=== PATIENT | female | born 1995 | race Caucasian/White ===

== ENCOUNTER → 2018-04-27 12:08 | Outpatient (CLI) | payer BC, SELFPAY ==
[2018-04-27 14:58] LABS: Absolute Lymphocyte Count 1.03 X10^3/ul (0.83-4.51); Absolute Neutrophil Count 4.9 X10^3/uL (2.0-7.7); Basophil# 0.01 X10^3/uL; Basophil% 0.2 % (0-1); Eosinophil# 0.02 X10^3/uL; Eosinophils% 0.3 % (0-5); Erythrocyte Sedimentation Rate 5 mm/hr (0-20); Hematocrit 41.9 % (37-47); Hemoglobin 13.8 g/dl (12.0-15.0); Lymphocyte # 1.03 X10^3/ul (4.0); Lymphocyte % 15.8 % (19-41); Mean Corp Hgb Conc 32.9 g/gl (32-36); Mean Corpuscular Hgb 29.6 pg (27.0-32.0); Mean Corpuscular Volume 89.9 fL (81-99); Mean Platelet Vol. 10.5 fl (6.2-12.0); Monocyte# 0.57 X10^3/uL; Monocyte% 8.8 % (0-10); Neutrophil # 4.87 X10^3/uL (2.7-7.7); Neutrophil % 74.7 % (47-70); Platelet Count 271 K/mm3 (150-450); RBC Distribution Width CV 12.5 % (11.6-14.6); RBC Distribution Width SD 40.8 fl (35.1-43.9); Red Blood Count 4.66 M/mm3 (4.2-5.4); White Blood Count 6.5 K/mm3 (4.4-11.0)
[2018-04-27 14:59] LABS: POSITIVE COUNT NO; POSITIVE DIFFERENTIAL NO; POSITIVE MORPHOLOGY NO
[2018-04-27 15:07] LABS: Vitamin B12 238 pg/mL (211-911); Vitamin D,25 Hydroxy 34.9 ng/mL (29.95-100.01)
[2018-04-27 15:08] LABS: ALB/GLOB Ratio 0.8 RATIO (0.9-2.4); AST(SGOT) 40 U/L (15-37); Alanine Aminotransfer ALT/SGPT 59 U/L (13-56); Albumin, Serum 3.4 g/dL (3.2-5.0); Alkaline Phosphatase 68 U/L (45-117); Anion Gap 7 (5-15); BUN 11 mg/dL (7-18); BUN/Creat Ratio 14.2 RATIO (10-20); Calcium,Total 8.1 mg/dL (8.5-10.1); Chloride 104 mmol/L (98-107); Creatinine, Serum 0.77 mg/dL (0.55-1.02); EST Glomerular Filtration Rate 98 mL/min (>60); Est Glom Filt Rate - Afr Amer 119 mL/min (>60); Glucose 88 mg/dL (74-106); Iron 27 ug/dL (50-170); Potassium 3.5 mmol/L (3.5-5.1); Protein, Total 7.4 g/dL (6.4-8.2); Sodium Level 136 mmol/L (136-145); Thyroid Stim Hormone (TSH) 1.71 uIU/mL (0.358-3.74)
[2018-04-28 20:07] LABS: Endomysial Antibody IgA Negative (Negative)
[2018-04-29 12:35] LABS: Immunoglobulin A 122 mg/dL (87-352); t-Transglutaminase IgA <2 U/mL (0-3)
== END ==
PROVIDERS: Referring Provider Family Medicine; Visit Provider Family Medicine
DX: K58.0 Irritable bowel syndrome with diarrhea (principal); R53.83 Other fatigue
CPT/HCPCS: 36415; 80053; 82306; 82607; 82784; 83516; 83540; 84443; 85025; 85652; 86255

== ENCOUNTER → 2018-07-19 17:34 | Outpatient (CLI) | payer BC, SELFPAY ==
[2018-07-19 08:43] VITALS: BMI 26.0
[2018-07-19 20:14] LABS: Chlamydia Trachomatis by PCR Negative (Negative); Neisserai gonorrhoeae by PCR Negative (Negative); Probe Check PASS; Sample Adequacy Control PASS; Specimen Processing Control PASS
== END ==
PROVIDERS: Visit Provider Nurse Practitioner Women's Health
DX: Z11.3 Encounter for screening for infections with a predominantly sexual mode of transmission (principal)
CPT/HCPCS: 87491; 87591

== ENCOUNTER → 2019-04-05 15:25 | Outpatient (CLI) | payer BC, SELFPAY ==
[2019-04-05 11:34] VITALS: BMI 26.0
== END ==
PROVIDERS: Visit Provider Nurse Practitioner Women's Health
DX: N89.8 Other specified noninflammatory disorders of vagina (principal)
CPT/HCPCS: 87070; 87205

== ENCOUNTER → 2019-06-01 | Outpatient (CLI) | payer BC, SELFPAY ==
[2019-04-05 11:34] VITALS: BMI 26.0
[2019-06-01 15:38] LABS: Absolute Lymphocyte Count 2.08 X10^3/uL (0.83-4.51); Absolute Neutrophil Count 5.7 X10^3/uL (2.0-7.7); Basophil# 0.02 X10^3/uL; Basophil% 0.2 % (0-1); Eosinophil# 0.08 X10^3/uL; Hematocrit 40.9 % (37-47); Hemoglobin 13.5 g/dL (12.0-15.0); Lymphocyte # 2.08 X10^3/ul (4.0); Lymphocyte % 24.7 % (19-41); Mean Corpuscular Hgb 29.5 pg (27.0-32.0); Mean Corpuscular Volume 89.5 fL (81-99); Mean Platelet Vol. 10.7 fl (6.2-12.0); Monocyte# 0.56 X10^3/uL; Monocyte% 6.7 % (0-10); NRBC Flagged by Analyzer 0 % (0-5); Neutrophil # 5.66 X10^3/uL (2.7-7.7); Neutrophil % 67.2 % (47-70); Platelet Count 277 K/mm3 (150-450); RBC Distribution Width CV 11.6 % (11.6-14.6); RBC Distribution Width SD 37.8 fl (35.1-43.9); Red Blood Count 4.57 M/mm3 (4.2-5.4); White Blood Count 8.4 K/mm3 (4.4-11.0)
[2019-06-01 16:20] LABS: Internal QC Validated? YES +Cl - CLEAR BKGD; Monotest Negative (Negative)
[2019-06-01 16:22] LABS: AST(SGOT) 14 U/L (15-37); Alanine Aminotransfer ALT/SGPT 34 U/L (13-56); Alkaline Phosphatase 70 U/L (45-117); Anion Gap 5 (5-15); BUN 13 mg/dL (7-18); BUN/Creat Ratio 14.8 RATIO (10-20); Calcium,Total 9.1 mg/dL (8.5-10.1); Chloride 104 mmol/L (98-107); Creatinine, Serum 0.88 mg/dL (0.55-1.02); EST Glomerular Filtration Rate 84 mL/min (>60); Est Glom Filt Rate - Afr Amer 102 mL/min (>60); Globulin 3.9 g/dL (2.2-4.2); Glucose 90 mg/dL (74-106); Potassium 3.5 mmol/L (3.5-5.1); Protein, Total 7.9 g/dL (6.4-8.2); Sodium Level 137 mmol/L (136-145)
[2019-06-05 12:18] LABS: EBV Acute VCA IgM < 36.0 U/mL (0.0-35.9)
== END | disposition home or self-care (01) ==
LOC: MTLAB 14:39
PROVIDERS: Referring Provider Family Medicine; Visit Provider Family Medicine
DX: R53.83 Other fatigue (principal)
CPT/HCPCS: 36415; 80053; 85025; 86308; 86664; 86665

== ENCOUNTER → 2019-09-26 | Outpatient (CLI) | payer BC, SELFPAY ==
[2019-09-26 09:44] VITALS: BMI 26.0
[2019-09-30 11:37] LABS: HPV Reflexed? NOT INDICATED
== END | disposition home or self-care (01) ==
LOC: LABSPEC 14:22
PROVIDERS: PCP Family Medicine; Referring Provider Nurse Practitioner Women's Health; Visit Provider Nurse Practitioner Women's Health
DX: Z12.4 Encounter for screening for malignant neoplasm of cervix (principal)
CPT/HCPCS: 88175; G0145

== ENCOUNTER → 2020-03-15 | Outpatient (CLI) | payer BC, SELFPAY ==
[2019-09-26 09:44] VITALS: BMI 26.0
== END | disposition home or self-care (01) ==
LOC: LABSPEC 17:13
PROVIDERS: PCP Family Medicine; Referring Provider Family Medicine; Visit Provider Family Medicine
DX: Z03.818 Encounter for observation for suspected exposure to other biological agents ruled out (principal)
CPT/HCPCS: 87635; C9803; U0003

== ENCOUNTER → 2020-04-01 12:57 | Outpatient (CLI) | payer BC, SELFPAY ==
[2019-09-26 09:44] VITALS: BMI 26.0
--- NOTE | 2020-04-01 13:01 | RAD_ITS ---
STUDY: X-RAY - PARANASAL SINUSES REASON FOR EXAM: Female, 25 years old. acute sinusitis TECHNIQUE: 3 view(s) of the paranasal sinuses were obtained. COMPARISON: None. FINDINGS: Normal visualized frontal, maxillary, ethmoidal and sphenoid sinuses. Normal visualized facial bones. The soft tissue structures are unremarkable. RAD/Sinuses min 3 Views IMPRESSION: Normal x-rays of the paranasal sinuses. Electronically Signed: Michael Ramirez MD at 22:58 EST , Service support ,
== END ==
PROVIDERS: PCP Family Medicine; Referring Provider Family Medicine; Visit Provider Family Medicine
DX: J01.90 Acute sinusitis, unspecified (principal)
CPT/HCPCS: 70220

== ENCOUNTER → 2021-01-13 | Outpatient (CLI) | payer OTHER, BC, SELFPAY | END | disposition home or self-care (01) | PROVIDERS: PCP Family Medicine; Referring Provider Family Medicine; Visit Provider Family Medicine | DX: Z20.822 Contact with and (suspected) exposure to COVID-19 (principal) | CPT/HCPCS: 87635; U0005; U0003 ==

== ENCOUNTER → 2021-01-29 14:24 | Outpatient (CLI) | payer OTHER, SELFPAY ==
[2021-01-29 17:55] LABS: Absolute Lymphocyte Count 2.03 X10^3/uL (0.83-4.51); Absolute Neutrophil Count 3.4 X10^3/uL (2.0-7.7); Basophil# 0.01 X10^3/uL; Basophil% 0.2 % (0-1); Eosinophil# 0.03 X10^3/uL; Eosinophils% 0.5 % (0-5); Hematocrit 37.5 % (37-47); Hemoglobin 12.5 g/dL (12.0-15.0); Lymphocyte # 2.03 X10^3/ul (0.83-4.51); Lymphocyte % 34.3 % (19-41); Mean Corp Hgb Conc 33.3 g/dL (32-36); Mean Corpuscular Volume 89.9 fL (81-99); Mean Platelet Vol. 10.5 fl (6.2-12.0); Monocyte# 0.41 X10^3/uL; Monocyte% 6.9 % (0-10); NRBC Flagged by Analyzer 0 % (0-5); Neutrophil # 3.42 X10^3/uL (2.7-7.7); Neutrophil % 57.8 % (47-70); Platelet Count 292 K/mm3 (150-450); RBC Distribution Width CV 11.7 % (11.6-14.6); RBC Distribution Width SD 38.4 fl (35.1-43.9); Red Blood Count 4.17 M/mm3 (4.2-5.4); White Blood Count 5.9 K/mm3 (4.4-11.0)
[2021-01-29 18:08] LABS: Erythrocyte Sedimentation Rate 9 mm/hr (0-30)
[2021-01-29 18:27] LABS: Anion Gap 6 (5-15); BUN 13 mg/dL (7-18); BUN/Creat Ratio 16.7 RATIO (10-20); Calcium,Total 8.8 mg/dL (8.5-10.1); Chloride 105 mmol/L (98-107); Creatinine, Serum 0.78 mg/dL (0.55-1.02); EST Glomerular Filtration Rate 95 mL/min (>60); Est Glom Filt Rate - Afr Amer 115 mL/min (>60); Glucose 86 mg/dL (74-106); Potassium 3.6 mmol/L (3.5-5.1); Sodium Level 139 mmol/L (136-145)
== END ==
PROVIDERS: PCP Family Medicine; Referring Provider Family Medicine; Visit Provider Family Medicine
DX: R05.9 Cough, unspecified (principal)
CPT/HCPCS: 36415; 80048; 85025; 85652

== ENCOUNTER → 2021-04-10 13:17 | Outpatient (CLI) | payer OTHER, SELFPAY ==
[2021-04-14 02:06] LABS: Chlamydia By Nucleic Acid AMP Negative (Negative)
[2021-04-14 14:54] LABS: Gonococcus By Nucleic Acid AMP Negative (Negative)
[2021-04-16 08:40] LABS: HPV Reflexed? NOT INDICATED
== END ==
PROVIDERS: PCP Family Medicine; Visit Provider Obstetrics & Gynecology
DX: Z12.4 Encounter for screening for malignant neoplasm of cervix (principal); Z11.3 Encounter for screening for infections with a predominantly sexual mode of transmission
CPT/HCPCS: 87491; 87591; 88175; G0145

== ENCOUNTER 2021-06-23 17:52 | Outpatient (CLI) | payer OTHER, SELFPAY | END 2021-06-23 23:59 | disposition home or self-care (01) | PROVIDERS: PCP Family Medicine; Visit Provider Family Medicine | DX: Z20.822 Contact with and (suspected) exposure to COVID-19 (principal) | CPT/HCPCS: 87635; U0003; U0005 ==

== ENCOUNTER → 2021-10-02 | Outpatient (CLI) | payer OTHER, SELFPAY ==
[2021-10-02 17:55] LABS: Absolute Lymphocyte Count 2.06 X10^3/uL (0.83-4.51); Absolute Neutrophil Count 5.7 X10^3/uL (2.0-7.7); Basophil# 0.04 X10^3/uL; Basophil% 0.5 % (0-1); Eosinophil# 0.05 X10^3/uL; Eosinophils% 0.6 % (0-5); Hematocrit 39.9 % (37-47); Hemoglobin 13.4 g/dL (12.0-15.0); Lymphocyte # 2.06 X10^3/ul (0.83-4.51); Lymphocyte % 24.2 % (19-41); Mean Corp Hgb Conc 33.6 g/dL (32-36); Mean Corpuscular Hgb 29.8 pg (27.0-32.0); Mean Corpuscular Volume 88.9 fL (81-99); Mean Platelet Vol. 10.3 fl (6.2-12.0); Monocyte# 0.62 X10^3/uL; Monocyte% 7.3 % (0-10); NRBC Flagged by Analyzer 0 % (0-5); Neutrophil # 5.72 X10^3/uL (2.7-7.7); Platelet Count 355 K/mm3 (150-450); RBC Distribution Width CV 11.7 % (11.6-14.6); RBC Distribution Width SD 37.3 fl (35.1-43.9); Red Blood Count 4.49 M/mm3 (4.2-5.4); White Blood Count 8.5 K/mm3 (4.4-11.0)
[2021-10-02 18:35] LABS: Erythrocyte Sedimentation Rate 11 mm/hr (0-30)
== END | disposition home or self-care (01) ==
PROVIDERS: PCP Family Medicine; Referring Provider Family Medicine; Visit Provider Family Medicine
DX: K52.9 Noninfective gastroenteritis and colitis, unspecified (principal)
CPT/HCPCS: 36415; 85025; 85652

== ENCOUNTER → 2021-10-03 | Outpatient (CLI) | payer OTHER, SELFPAY ==
--- NOTE | 2021-10-03 10:35 | RAD_ITS ---
STUDY: X-RAY - ACUTE ABDOMINAL SERIES REASON FOR EXAM: Female, 26 years old. Abdominal pain. History of colitis. TECHNIQUE: Single view of the chest. Supine, and erect view(s) of the abdomen were obtained. COMPARISON: None. FINDINGS: The lungs are clear and expanded. Normal size heart. Normal mediastinum and oriana. Normal visualized pulmonary arteries. Normal visualized aortic arch and descending thoracic aorta. There is an abundance of fecal material throughout the colon. The soft tissue structures of the abdomen and pelvis are unremarkable. Normal visualized osseous structures. RAD/Acute Abdomen Inc Chest IMPRESSION: Large amount of fecal material is seen in the colon. Electronically Signed: Bernardo Ryan MD at 11:29 EDT ,
== END | disposition home or self-care (01) ==
PROVIDERS: PCP Family Medicine; Referring Provider Family Medicine; Visit Provider Family Medicine
DX: K52.9 Noninfective gastroenteritis and colitis, unspecified (principal)
CPT/HCPCS: 74022

== ENCOUNTER → 2022-01-07 | Outpatient (CLI) | payer OTHER, SELFPAY ==
[2022-01-07 11:59] LABS: Erythrocyte Sedimentation Rate 14 mm/hr (0-30)
[2022-01-07 12:01] LABS: Absolute Lymphocyte Count 2.12 X10^3/uL (0.83-4.51); Absolute Neutrophil Count 5.2 X10^3/uL (2.0-7.7); Basophil# 0.02 X10^3/uL; Basophil% 0.3 % (0-1); Eosinophil# 0.03 X10^3/uL; Eosinophils% 0.4 % (0-5); Hematocrit 41.3 % (37-47); Hemoglobin 13.8 g/dL (12.0-15.0); Lymphocyte # 2.12 X10^3/ul (0.83-4.51); Lymphocyte % 27.2 % (19-41); Mean Corp Hgb Conc 33.4 g/dL (32-36); Mean Corpuscular Hgb 29.9 pg (27.0-32.0); Mean Corpuscular Volume 89.6 fL (81-99); Mean Platelet Vol. 10.1 fl (6.2-12.0); Monocyte# 0.43 X10^3/uL; Monocyte% 5.5 % (0-10); NRBC Flagged by Analyzer 0 % (0-5); Neutrophil # 5.16 X10^3/uL (2.7-7.7); Neutrophil % 66.2 % (47-70); Platelet Count 362 K/mm3 (150-450); RBC Distribution Width CV 11.8 % (11.6-14.6); RBC Distribution Width SD 38.4 fl (35.1-43.9); Red Blood Count 4.61 M/mm3 (4.2-5.4); White Blood Count 7.8 K/mm3 (4.4-11.0)
[2022-01-07 12:25] LABS: ALB/GLOB Ratio 0.9 RATIO (0.9-2.4); AST(SGOT) 21 U/L (15-37); Alanine Aminotransfer ALT/SGPT 26 U/L (13-56); Alkaline Phosphatase 76 U/L (45-117); Anion Gap 5 (5-15); BUN 16 mg/dL (7-18); BUN/Creat Ratio 19.1 RATIO (10-20); CRP 6.11 mg/L (0.0-3.0); Calcium,Total 9.3 mg/dL (8.5-10.1); Chloride 102 mmol/L (98-107); Creatinine, Serum 0.84 mg/dL (0.55-1.02); EST Glomerular Filtration Rate 87 mL/min (>60); Est Glom Filt Rate - Afr Amer 105 mL/min (>60); Globulin 4.3 g/dL (2.2-4.2); Glucose 96 mg/dL (74-106); LDH 185 U/L (84-246); Protein, Total 8.3 g/dL (6.4-8.2); Sodium Level 135 mmol/L (136-145)
[2022-01-08 15:08] LABS: Endomysial Antibody IgA Negative (Negative)
[2022-01-08 16:09] LABS: Anti-Centromere B Ab <0.2 AI (0.0-0.9); Anti-Chromatin <0.2 AI (0.0-0.9); Anti-Jo <0.2 AI (0.0-0.9); Anti-Scleroderma-70 AB <0.2 AI (0.0-0.9); RNP Ab 0.2 AI (0.0-0.9); SJOGREN'S Anti-SS-A test < 0.2 AI (0.0-0.9); SJOGREN'S Anti-SS-B test < 0.2 AI (0.0-0.9); Smith Ab <0.2 AI (0.0-0.9)
[2022-01-09 19:27] LABS: Immunoglobulin A 140 mg/dL (87-352); t-Transglutaminase IgA <2 U/mL (0-3)
[2022-01-09 19:29] LABS: Anti-dsDNA Ab 6 IU/mL (0-9)
[2022-01-13 18:07] LABS: Albumin 4.2 g/dL (2.9-4.4); Alpha-1-Globulins 0.3 g/dL (0.0-0.4); Alpha-2-Globulins 0.8 g/dL (0.4-1.0); Cytoplasmic Ab (C-ANCA) <1:20 titer (Neg:<1:20); Gamma Globulin 1.3 g/dL (0.4-1.8); Immunoglobulin A 141 mg/dL (87-352); Immunoglobulin E 144 IU/mL (6-495); Immunoglobulin G 1167 mg/dL (586-1602); Immunoglobulin M 144 mg/dL (26-217); PROEL- TOTAL PROTEIN 7.9 g/dL (6.0-8.5)
[2022-01-14 11:01] LABS: Perinuclear Ab (P-ANCA) <1:20 titer (Neg:<1:20)
== END | disposition home or self-care (01) ==
PROVIDERS: PCP Family Medicine; Referring Provider Nurse Practitioner Adult Health; Visit Provider Nurse Practitioner Adult Health
DX: R10.9 Unspecified abdominal pain (principal); K62.5 Hemorrhage of anus and rectum
CPT/HCPCS: 36415; 80053; 82784; 82785; 83516; 83615; 84165; 85025; 85652; 86140; 86225; 86235; 86255; 86256; 86334

== ENCOUNTER → 2022-01-10 | Outpatient (CLI) | payer OTHER, SELFPAY ==
[2022-01-16 08:59] LABS: Calprotectin, Stool 38 ug/g (0-120)
== END | disposition home or self-care (01) ==
LOC: LABSPEC 10:07
PROVIDERS: PCP Family Medicine; Referring Provider Nurse Practitioner Adult Health; Visit Provider Nurse Practitioner Adult Health
DX: R10.9 Unspecified abdominal pain (principal); K62.5 Hemorrhage of anus and rectum
CPT/HCPCS: 83630; 83993

== ENCOUNTER 2022-04-23 08:37 | Day surgery (SDC) | payer OTHER, SELFPAY ==
[2022-04-23] MEDS: Lactated Ringers 1,000 ML 15 ML IV (08:55)
--- NOTE | 2022-04-23 09:00 | PCM.HP.BLA ---
History and Physical Date of Admission: 04/23/22 [facility] [address] [place] [address] OFFICE VISIT Date of Service:? 01/07/22 MR#: [id number] Acct: [id number] Name:ML LINDO Rep #: [id number] : 1995 ? ? Provider: ?TREY Delaney Age/Sex:? 26/F ? ? Location: [facility] [place] Status: Signed Intake Vital Signs ? 04/21/2207:51 01/07/2210:34 Height 5 ft 7.75 in 5 ft 7 in Weight: ? 187 lb BMI ? 29.2 BP ? 112/75 Blood Pressure Location ? Rt brachial Position ? Sitting Pulse ? 79 Pulse Oximetry (%) ? 96 Oxygen Delivery Method ? room air Intake Visit Reasons:?BLOOD IN STOOL Chief Complaint: IBS, blood in stool Allergies azithromycin [From Zithromax Z-Blaise] Allergy (Unknown, Verified 04/21/21 08:52) Unknownsulfamethoxazole [From Bactrim] Allergy (Unknown, Verified 04/21/21 08:52) Unknowntrimethoprim [From Bactrim] Allergy (Unknown, Verified 04/21/21 08:52) Unknown Medications omeprazole 40 mg capsule,delayed release 40 mg PO DAILY 11/20/21 [History Confirmed 12/30/21] spironolactone 100 mg tablet 100 mg PO DAILY 11/20/21 [History Confirmed 12/30/21] desogestrel 0.15 mg-ethinyl estradiol 0.03 mg tablet (Apri) 1 tab PO DAILY #84 tabs 12/30/21 [Rx Confirmed 12/30/21] dicyclomine 20 mg tablet 20 mg PO BID PRN abdominal pain #60 tabs 01/07/22 [Rx Confirmed 01/07/22] PFSH Medical History? Acne GERD (gastroesophageal reflux disease) Hemorrhoids IBS (irritable bowel syndrome) Surgical History? History of colonoscopy History of wisdom tooth extraction Family History? Father HypertensionMother Hypertension Gastric ulcer Hypercholesteremia Social History? number of children:? 0 Smoking Status:? Never smoker alcohol intake:? current alcohol intake frequency: a few times a month substance use type:? does not use caffeine:? Yes what type of physical activity do you participate in:? running and bicycling frequency:? 3-4 times per week seatbelt use:? always do you feel safe at home:? Yes additional social history:? Single Works at [employer] History Menstrual Ab induced: 0 Ab spontaneous: 0 Ectopics: 0 HPI HPI Chief Complaint: IBS, blood in stool Details: ML GOODWIN, is a 26 F who presents to the office today referred by primary care for blood in stool. She has a diagnosis of IBS. IBS symptoms began age 19, saw a family and consumer sciences professor, told to do FODMAP diet. Had colonoscopy by a different GI doc in 2019, diagnosed IBS then. She reports IBS flares occur approximately once a month, no pattern or cause she can discern, starts with severe sharp pains that go across the lower abdomen, that lasts one hour; then gets diarrhea, may have a few bouts of diarrhea. Gets nausea from the pain but no vomiting. Also gets bloating. Dicyclomine 20 mg prn does help, she needs a refill. Also takes pepto bismol prn. Between flares she has BM every morning after coffee. May require lots of wiping. Thought she might have a hemorrhoid in 03/2021, [employer] didn't see an external hemorrhoid so referred to Gen Surg. General surgeon diagnosed likely anal fissure; treated with suppository, that resolved the problem temporarily. Intermittently has small amt bright red blood with BM but then other times has more significant amt of blood from the rectum even w/o BM. Omeprazole was prescribed by ENT for chronic sore throat approx 1.5 yrs ago, that resolved the sore throats, no hx of EGD. She had had sore throat for a couple of years. She didn't have heartburn or evident acid reflux. ED visit in 09/2021 for abd cramping with bloody diarrhea--c diff neg, WBC slightly elevated 11.2, CMP unremarkable; CT possible mild or developing descending colitis; treated with flagyl and bentyl. Has gained 10 lbs in last 8 mos; eating a calorie deficit to try to lose weight. Mother had partial colectomy due to complications from constipation. Father probably has IBS. No FH IBS or other autoimmune disorders. 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 ROS Const Constitutional: No fatigue ENT ENT: No difficulty swallowing Gastro GI: Positive for abdominal pain, heartburn and Blood in stool; No belching, bloating, change in bowel habits, change in stool character, coffee ground emesis, constipation, cramping, diarrhea, difficulty swallowing, feeling full early, excessive flatus, incontinent of stools, Vomiting blood/hematemesis, loose stools, Black,tarry stools, nausea/dyspepsia, pain with swallowing, vomiting or other Musc Musculoskeletal: Positive for muscle cramps and stiffness; No joint pain Skin Skin: No yellowing of the eye or itchy eyes Psych Psychiatric: Positive for anxiety and No depression Endo Endocrine: No fatigue Aller/Imm Allergy/Immunologic: No itchy eyes Tremayne/Lymp Hematologic/Lymphatic: No easy bleeding or easy bruising Exam Const General: cooperative, healthy appearing and comfortable Nutritional Appearance: overweight Orientation: alert, awake and oriented x3 HENMT Head: normal to inspection Eyes General: appearance normal, both eyes and all related structures Resp Effort & Inspection: normal respiratory effort GI Inspection: normal to inspection Palpation: soft, no hepatosplenomegaly, no masses and nontender Skin General: no rashes or lesions noted Neuro Gait: normal gait Extrem General: no pedal edema Quality Reporting Tobacco Screening ([facility] 138) Smoking Status: Never smoker Assessment and Plan Assessment and Plan (1) Rectal bleed: ?Status:?Acute ?Plan: 26 yr old female with diagnosis of IBS, with flares about once a month treated with dicyclomine. She has intermittent bright red blood per rectum, not always associated w/ BM, and typically not painful. Chronic sore throat resolved with omeprazole 40 mg daily. She needs EGD to evaluate for De Los Santos's, hiatal hernia. She needs colonoscopy to evaluate for cause of rectal bleeding, DDx includes IBD, anal fissure. Rx for dicyclomine 20 mg bid, can use prn since her symptoms are only sporadic.? Will get blood and stool tests to evaluate for IBD. (2) Abdominal cramps: ?Status:?Acute ?Plan: see above (3) IBS (irritable bowel syndrome): ?Status:?Acute ?Plan: see above (4) GERD (gastroesophageal reflux disease): ?Status:?Acute ?Plan: see above ? ? ? Orders: Orders Comprehensive Metabolic Profil Today K62.5 - Hemorrhage of anus and rectum, R10.9 - Unspecified abdominal pain ? CRP Today K62.5 - Hemorrhage of anus and rectum, R10.9 - Unspecified abdominal pain ? LDH Today K62.5 - Hemorrhage of anus and rectum, R10.9 - Unspecified abdominal pain ? CBC W/Diff, Automated Today K62.5 - Hemorrhage of anus and rectum, R10.9 - Unspecified abdominal pain ? Erythrocyte Sed Rate Today K62.5 - Hemorrhage of anus and rectum, R10.9 - Unspecified abdominal pain ? JON Comprehensive Panel Today K62.5 - Hemorrhage of anus and rectum, R10.9 - Unspecified abdominal pain ? Calprotectin, Stool Today K62.5 - Hemorrhage of anus and rectum, R10.9 - Unspecified abdominal pain ? Stool Lactoferrin/WBC Today K62.5 - Hemorrhage of anus and rectum, R10.9 - Unspecified abdominal pain ? ANCA Today K62.5 - Hemorrhage of anus and rectum, R10.9 - Unspecified abdominal pain ? Celiac Disease Profile Today K62.5 - Hemorrhage of anus and rectum, R10.9 - Unspecified abdominal pain ? Immunoglobulins G/A/M/E Today K62.5 - Hemorrhage of anus and rectum, R10.9 - Unspecified abdominal pain ? ARCHANA + Protein Elect, Serum Today K62.5 - Hemorrhage of anus and rectum, R10.9 - Unspecified abdominal pain ? Miscellaneous Lab Procedure Today K62.5 - Hemorrhage of anus and rectum, R10.9 - Unspecified abdominal pain ? Medications: New dicyclomine 20 mg? PO BID PRN 60 tabs 2RF abdominal pain ? ? I have examined the patient and the H&P has been reviewed. There are no clinical changes since date of exam.
[2022-04-23 09:11] VITALS: BP 126/71; PULSE 72; RESP 16; TEMP 36.9; O2SAT 100; BMI 29.2
[2022-04-23 09:11] LABS: Internal QC Validated? YES +Cl - CLEAR BKGD; Pregnancy, Urine Negative Negative
[2022-04-23 10:15] VITALS: BP 126/71; BP 92/57; PULSE 65; RESP 16; TEMP 36.2; O2SAT 100
[2022-04-23 10:20] VITALS: BP 126/71; BP 94/58; PULSE 62; RESP 16; O2SAT 100
[2022-04-23 10:25] VITALS: BP 126/71; BP 99/61; PULSE 60; RESP 16; O2SAT 99
--- NOTE | 2022-04-23 10:25 | OP.EGD_ITS ---
Patient Name: Lydia Means Procedure Date: 04/23/2022 9:41 AM Date of : 1995 Age: 27 Procedure: Upper GI endoscopy Indications: Epigastric abdominal pain, Functional Dyspepsia Providers: Kolton Hartman DO Medicines: Monitored Anesthesia Care Patient Profile: This is a 27 year old female. Refer to note in patient chart for documentation of history and physical. Patient has symptoms. Complications: No immediate complications. Procedure: Pre-Anesthesia Assessment: - Prior to the procedure, a History and Physical was performed, and patient medications and allergies were reviewed. The patient is competent. The risks and benefits of the procedure and the sedation options and risks were discussed with the patient. All questions were answered and informed consent was obtained. Patient identification and proposed procedure were verified by the physician in the pre-procedure area. Mental Status Examination: alert and oriented. Airway Examination: normal oropharyngeal airway and neck mobility. Respiratory Examination: clear to auscultation. CV Examination: normal. Prophylactic Antibiotics: The patient does not require prophylactic antibiotics. Prior Anticoagulants: The patient has taken no previous anticoagulant or antiplatelet agents. ASA Grade Assessment: II - A patient with mild systemic disease. After reviewing the risks and benefits, the patient was deemed in satisfactory condition to undergo the procedure. The anesthesia plan was to use monitored anesthesia care (MAC). Immediately prior to administration of medications, the patient was re-assessed for adequacy to receive sedatives. The heart rate, respiratory rate, oxygen saturations, blood pressure, adequacy of pulmonary ventilation, and response to care were monitored throughout the procedure. The physical status of the patient was re-assessed after the procedure. After obtaining informed consent, the endoscope was passed under direct vision. Throughout the procedure, the patient's blood pressure, pulse, and oxygen saturations were monitored continuously. The colonoscope was introduced through the mouth, and advanced to the second part of duodenum. The upper GI endoscopy was accomplished without difficulty. The patient tolerated the procedure well. Scope In: 9:50:19 AM Scope Out: 9:54:44 AM Total Procedure Duration Time 0 hours 4 minutes 25 seconds Findings: The Z-line was irregular and was found 39 cm from the incisors. Biopsies were taken with a cold forceps for histology. Verification of patient identification for the specimen was done. Estimated blood loss was minimal. A lax lower esophageal sphincter was seen. No other significant abnormalities were identified in a careful examination of the stomach. Possible inflammmtion was found in the cardia. Biopsies were taken with a cold forceps for histology. Verification of patient identification for the specimen was done. Estimated blood loss was minimal. There appeared to be a lack of pyloric sphincter. The duodenal bulb, first portion of the duodenum and second portion of the duodenum were normal. Biopsies were taken with a cold forceps for histology. Verification of patient identification for the specimen was done. Estimated blood loss was minimal. Impression: - Z-line irregular, 39 cm from the incisors. Biopsied. - Erythematous mucosa in the cardia. Biopsied. - Normal duodenal bulb, first portion of the duodenum and second portion of the duodenum. Biopsied. Recommendation: - Discharge patient to home. - Resume previous diet. - Continue present medications. - Await pathology results. -Gastric emptying study to look for dumping syndrome or signs of gastroparesis, upper GI with small bowel follow-through to look for signs of median arcuate ligament syndrome and consider HIDA scan to see if there is duodenal gastric reflux. Procedure Code(s): --- Professional --- 74900, Esophagogastroduodenoscopy, flexible, transoral; with biopsy, single or multiple CPT copyright 2017 [employer]. All rights reserved. The codes documented in this report are preliminary and upon spud sorter review may be revised to meet current compliance requirements. Kolton Hartman DO 04/23/2022 10:24:55 AM This report has been signed electronically. Number of Addenda: 0 Note Initiated On: 04/23/2022 9:41 AM
--- NOTE | 2022-04-23 10:25 | OP.CCLET_ITS ---
04/23/2022 Pino Kumar [address] [place] [address] Re : Upper GI endoscopy procedure for Lydia Miguelangel Dear Dr. Kumar This procedure was performed on April. My impressions and recommendations are as follows: Impressions : - Z-line irregular, 39 cm from the incisors. Biopsied. - Erythematous mucosa in the cardia. Biopsied. - Normal duodenal bulb, first portion of the duodenum and second portion of the duodenum. Biopsied. Recommendations : - Discharge patient to home. - Resume previous diet. - Continue present medications. - Await pathology results. -Gastric emptying study to look for dumping syndrome or signs of gastroparesis, upper GI with small bowel follow-through to look for signs of median arcuate ligament syndrome and consider HIDA scan to see if there is duodenal gastric reflux. My findings are described in the full procedure note, which is enclosed. If I can be of further assistance, please feel free to contact me at . Sincerely, Kolton Hartman, 04/23/2022 10:24:55 AM This report has been signed electronically.
[2022-04-23 10:30] VITALS: BP 100/63; BP 126/71; PULSE 66; RESP 16; TEMP 36.6; O2SAT 100
--- NOTE | 2022-04-23 10:31 | OP.COLON_ITS ---
Patient Name: Lydia Means Procedure Date: 04/23/2022 9:54 AM Date of : 1995 Age: 27 Procedure: Colonoscopy Indications: Generalized abdominal pain, Clinically significant diarrhea of unexplained origin Providers: Kolton Hartman DO Medicines: Monitored Anesthesia Care Patient Profile: This is a 27 year old female. Refer to note in patient chart for documentation of history and physical. Patient has symptoms. Last Colonoscopy: date unknown. Unable to locate last colonoscopy report. Complications: No immediate complications. Procedure: Pre-Anesthesia Assessment: - Prior to the procedure, a History and Physical was performed, and patient medications and allergies were reviewed. The patient is competent. The risks and benefits of the procedure and the sedation options and risks were discussed with the patient. All questions were answered and informed consent was obtained. Patient identification and proposed procedure were verified by the physician in the pre-procedure area. Mental Status Examination: alert and oriented. Airway Examination: normal oropharyngeal airway and neck mobility. Respiratory Examination: clear to auscultation. CV Examination: normal. Prophylactic Antibiotics: The patient does not require prophylactic antibiotics. Prior Anticoagulants: The patient has taken no previous anticoagulant or antiplatelet agents. ASA Grade Assessment: II - A patient with mild systemic disease. After reviewing the risks and benefits, the patient was deemed in satisfactory condition to undergo the procedure. The anesthesia plan was to use monitored anesthesia care (MAC). Immediately prior to administration of medications, the patient was re-assessed for adequacy to receive sedatives. The heart rate, respiratory rate, oxygen saturations, blood pressure, adequacy of pulmonary ventilation, and response to care were monitored throughout the procedure. The physical status of the patient was re-assessed after the procedure. After I obtained informed consent, the scope was passed under direct vision. Throughout the procedure, the patient's blood pressure, pulse, and oxygen saturations were monitored continuously. The colonoscope was introduced through the anus and advanced to the terminal ileum. The colonoscopy was performed without difficulty. The patient tolerated the procedure well. The quality of the bowel preparation was good. Scope In: 9:56:56 AM Scope Withdrawal Time 0 hours 11 minutes 22 seconds Scope Out: 10:10:53 AM Total Procedure Duration Time 0 hours 13 minutes 57 seconds Findings: The perianal and digital rectal examinations were normal. The colon (entire examined portion) appeared normal. Biopsies for histology were taken with a cold forceps from the entire colon for evaluation of microscopic colitis. The terminal ileum appeared normal. Biopsies were taken with a cold forceps for histology. Biopsies were taken with a cold forceps for histology. Verification of patient identification for the specimen was done. Impression: - The entire examined colon is normal. Biopsied. - The examined portion of the ileum was normal. Biopsied. Recommendation: - Await pathology results. - Repeat colonoscopy in 10 years for screening purposes. - Continue present medications. Procedure Code(s): --- Professional --- 93598, Colonoscopy, flexible; with biopsy, single or multiple CPT copyright 2017 [employer]. All rights reserved. The codes documented in this report are preliminary and upon hydraulic jack adjuster review may be revised to meet current compliance requirements. Kolton Hartman DO 04/23/2022 10:30:47 AM This report has been signed electronically. Number of Addenda: 0 Note Initiated On: 04/23/2022 9:54 AM
--- NOTE | 2022-04-23 10:32 | OP.CCLET_ITS ---
04/23/2022 Pino Kumar [address] [place] [address] Re : Colonoscopy procedure for Lydia Means Dear Dr. Kumar This procedure was performed on April. My impressions and recommendations are as follows: Impressions : - The entire examined colon is normal. Biopsied. - The examined portion of the ileum was normal. Biopsied. Recommendations : - Await pathology results. - Repeat colonoscopy in 10 years for screening purposes. - Continue present medications. My findings are described in the full procedure note, which is enclosed. If I can be of further assistance, please feel free to contact me at . Sincerely, Kolton Hartman, 04/23/2022 10:30:47 AM This report has been signed electronically.
[2022-04-23 10:59] VITALS: BP 126/71
--- NOTE | 2022-04-23 11:15 | EGD_PTH ---
PATIENT: ML STROUD LOC: EN U#:[id number] AGE/SX: 27/F ROOM: RE04/23/[address]: Dr. Kolton Hartman DO : 1995 BED: DIS: 04/23/2022 SPEC #: [id number] RECD: 04/23/22 12:37 STATUS: BRIGHT REHong #: [id number] KLEVER: 04/23/22 11:[address]: Kolton Hartman DEPT: SURGICAL PATHOLOGY RECD BY: Zaida Perrin ENTERED: 04/23/22 13:38 SP TYPE: EGD BIOPSY [facility] DR: Dr. Griffin Kumar MD Tissues: A - Duodenum, NOS B - Gastric mucous membrane C - Esophagus, NOS D - Ileum, NOS E - COLON BIOPSY Procedures: Special Stain Group II Surgery Specimen Level IV Alcian Blue/PAS (control) HEADER OPERATION: Colonoscopy, EGD ([facility] [place] biopsy PRE-OP DIAGNOSIS: Rectal bleed, abdominal cramps, IBS, GERD TISSUE SUBMITTED: A ? Duodenum biopsy, B ? Gastric cardia biopsy, C ? Distal esophagus biopsy, D ? Terminal ileum biopsy, E ? Random colon biopsy MICROSCOPIC DIAGNOSIS A. Duodenum, biopsy: A fragment of duodenal mucosa, no pathologic diagnosis. B. Gastric cardia, biopsy: Mild gastritis. See microscopic description and comment. C. Distal esophagus, biopsy: Fragments of gastroesophageal mucosa with focal intestinal metaplasia (goblet cell metaplasia) consistent with De Los Santos's esophagus. Chronic inflammation. Negative for dysplasia. See comment. D. Terminal ileum, biopsy: Fragments of small intestinal mucosa, no pathologic diagnosis. E. Colon, random biopsy: Fragments of colonic mucosa with rare pigment laden macrophages suspicious for melanosis coli. SJ:marques 04/24/2022 COMMENT B. The results of immunohistochemistry for Helicobacter pylori will be reported separately ([id number]). C. Immunohistochemistry ([id number]) for P53 and Ki-67 will be performed and results will be reported separately. Alcian blue/PAS stain with matched control is used in the evaluation of the specimen. MICROSCOPIC DESCRIPTION Slides are reviewed. B. The specimen shows fragments of gastric mucosa with chronic inflammatory cell infiltrates in the lamina propria consisting of lymphocytes and plasma cells, consistent with mild chronic gastritis. GROSS DESCRIPTION A - Received in fixative is one container labeled with the patient's name and designated duodenum biopsy. The specimen consists of one irregular fragment of light mims soft tissue that measures 0.5 x 0.5 x 0.1 cm. The specimen is totally submitted in one cassette. B - Received in fixative is one container labeled with the patient's name and designated gastric cardia biopsy. The specimen consists of one irregular fragment of light mims soft tissue that measures 0.6 x 0.5 x 0.1 cm. The specimen is totally submitted in one cassette. C - Received in fixative is one container labeled with the patient's name and designated distal esophagus biopsy. The specimen consists of two irregular fragments of light mims soft tissue that in aggregate measure 0.7 x 0.5 x 0.1 cm. The specimen is totally submitted in one cassette. D - Received in fixative is one container labeled with the patient's name and designated terminal ileum biopsy. The specimen consists of two irregular fragments of light mims soft tissue that in aggregate measure 0.8 x 0.5 x 0.1 cm. The specimen is totally submitted in one cassette. E - Received in fixative is one container labeled with the patient's name and designated random colon biopsy. The specimen consists of multiple irregular fragments of light mims soft tissue that in aggregate measure 1.5 x 0.7 x 0.1 cm. The specimen is totally submitted in one cassette. / AM:marques 04/23/2022 TC:5 [facility]: [id number] x5, [id number]
--- NOTE | 2022-04-23 11:15 | IMM_PTH ---
PATIENT: ML STROUD LOC: EN U#:[id number] AGE/SX: 27/F ROOM: RE04/23/[address]: Dr. Kolton Hartman DO : 1995 BED: DIS: 04/23/2022 SPEC #: [id number] RECD: 04/23/22 14:54 STATUS: BRIGHT REQ #: [id number] KLEVER: 04/23/22 11:[address]: Kolton Hartman DEPT: IMMUNOHISTOCHEMISTRY RECD BY: Janine Ruiz ENTERED: 04/23/22 14:54 SP TYPE: IMMUNO OTHR DR: Dr. Griffin Kumar MD Tissues: B - Stomach, NOS C - Esophagus, NOS Procedures: H Pylori (initial) P53 (initial) KI-67 (add) PHYSICIAN & INSTITUTION [place] [id number] SPECIMEN INFORMATION: Tissue Source: B ? Gastric cardia biopsy, C ? Distal esophagus biopsy Clinical Info: Rectal bleed, abdominal cramps, IBS, GERD Specimen Number: [id number] B & C CPT code: 66769 x2, 84849 METHODOLOGY: Deparaffinized sections of prefer/formalin-fixed tissue or PAP/DQ stained slides are incubated with monoclonal/polyclonal antibodies/oligonucleotide probes. Localization is made via biotin free immunoperoxidase method. Appropriate controls are performed and reacted as expected. Results on target cell population are indicated in the following table: RESULTS: ANTIBODY / CLONE RESULT Block B H Pylori (polyclonal) negative Block C P53 (DO-7) negative Ki-67 (30-9) positive, very low These tests were developed and their performance characteristics determined by [facility]. They may not have been cleared or approved by the U.S. Food and Drug Administration. The FDA has determined that such clearance or approval is not necessary. The above immunohistochemical/dualISH markers are ordered and reviewed by the Pathologist. INTERPRETATION: B. Gastric cardia, biopsy: Negative for Helicobacter pylori organisms. C. Distal esophagus, biopsy: Negative for dysplasia. SJ:marques 04/27/2022
== END 2022-04-23 11:07 | disposition home or self-care (01) ==
LOC: EN 08:38 → AC 08:45
PROVIDERS: Anesthesiology; PCP Family Medicine; Referring Provider Internal Medicine Gastroenterology; Visit Provider Internal Medicine Gastroenterology
PROC: 0DJD8ZZ Inspection of Lower Intestinal Tract, Via Natural or Artificial Opening Endoscopic (ICD-10-PCS; CPT 45378; principal; 2022-04-23 11:10)
DX: K22.70 Barrett's esophagus without dysplasia (principal); K29.70 Gastritis, unspecified, without bleeding; K58.0 Irritable bowel syndrome with diarrhea; J02.9 Acute pharyngitis, unspecified; K62.5 Hemorrhage of anus and rectum; K21.00 Gastro-esophageal reflux disease with esophagitis, without bleeding
CPT/HCPCS: 45380; 43239; 81025; 88305; 88313; 88341; 88342; J7120; J2405

== ENCOUNTER → 2022-05-15 | Outpatient (CLI) | payer OTHER, SELFPAY ==
--- NOTE | 2022-05-15 11:54 | NM_ITS ---
CLINICAL: 27-year-old female with history of abdominal pain and low esophageal sphincter pressure. SEMI-SOLID PHASE 99m Tc SULFUR COLLOID GASTRIC EMPTYING STUDY COMPARISON: None available FINDINGS: The patient was administered 1.1 mCi of 99m Tc sulfur colloid mixed with oatmeal and consumed per os. Image acquisitions in the anterior-posterior projections were obtained for 60 minutes. There is prompt visualization of the stomach. There is no gastroesophageal reflux identified. The T ? raw data emptying was calculated to be 42.88 minutes, (Normal: 12-56 minutes). NM/Gastric Emptying Study IMPRESSION: 1. NORMAL 99m Tc sulfur colloid semi-solid phase (oatmeal) gastric emptying imaging examination. A. There is normal and preserved semi-solid phase gastric emptying compared to normal controls. (Samuel et al, J Nucl Med Tech 38: 186, 2010). Electronically Signed: Jatin Rodriguez, at 9:39 EST ,
== END | disposition home or self-care (01) ==
PROVIDERS: PCP Family Medicine; Visit Provider Nurse Practitioner Adult Health
DX: R10.9 Unspecified abdominal pain (principal)
CPT/HCPCS: 78264; A9541

== ENCOUNTER → 2022-10-21 | Outpatient (CLI) | payer OTHER, SELFPAY | END | disposition home or self-care (01) | PROVIDERS: PCP Family Medicine; Referring Provider Nurse Practitioner Women's Health; Visit Provider Nurse Practitioner Women's Health | DX: N89.8 Other specified noninflammatory disorders of vagina (principal) | CPT/HCPCS: 87070; 87205 ==

== ENCOUNTER → 2022-11-18 | Outpatient (CLI) | payer OTHER, SELFPAY ==
[2022-11-18 10:10] LABS: Hemoglobin 14.1 g/dL (12.0-15.0); Mean Corp Hgb Conc 33.6 g/dL (32-36); Mean Corpuscular Hgb 29.7 pg (27.0-32.0); Mean Corpuscular Volume 88.6 fL (81-99); Mean Platelet Vol. 10.3 fl (6.2-12.0); Platelet Count 357 K/mm3 (150-450); RBC Distribution Width CV 11.9 % (11.6-14.6); RBC Distribution Width SD 37.8 fl (35.1-43.9); Red Blood Count 4.74 M/mm3 (4.2-5.4); White Blood Count 7.4 K/mm3 (4.4-11.0)
[2022-11-18 10:28] LABS: Erythrocyte Sedimentation Rate 15 mm/hr (0-30)
[2022-11-18 10:47] LABS: Vitamin D,25 Hydroxy 30.1 ng/mL
[2022-11-18 10:54] LABS: ALB/GLOB Ratio 0.8 RATIO (0.9-2.4); AST(SGOT) 13 U/L (15-37); Alanine Aminotransfer ALT/SGPT 22 U/L (13-56); Albumin, Serum 3.5 g/dL (3.2-5.0); Alkaline Phosphatase 77 U/L (45-117); Anion Gap 5 (5-15); BUN 15 mg/dL (7-18); BUN/Creat Ratio 16.5 RATIO (10-20); Calcium,Total 8.8 mg/dL (8.5-10.1); Chloride 105 mmol/L (98-107); Cholesterol 229 mg/dL (200); Creatinine, Serum 0.91 mg/dL (0.55-1.02); EST Glomerular Filtration Rate 79 mL/min (>60); Est Glom Filt Rate - Afr Amer 95 mL/min (>60); Ferritin 86 ng/mL (8-252); Globulin 4.4 g/dL (2.2-4.2); Glucose 101 mg/dL (74-106); High Density Lipoprotein 63 mg/dL; Iron 96 ug/dL (50-170); Potassium 4.1 mmol/L (3.5-5.1); Protein, Total 7.9 g/dL (6.4-8.2); Sodium Level 134 mmol/L (136-145); Thyroid Stim Hormone (TSH) 2.87 uIU/mL (0.358-3.74); Triglycerides 174 mg/dL; Very Low Density Lipoprotein 35 mg/dL (5-40)
--- NOTE | 2022-11-18 12:51 | US_ITS ---
STUDY: ULTRASOUND OF THE FEMALE PELVIS - COMPLETE REASON FOR EXAM: Female, 27 years old. Dyspareunia. LMP: October 06, 2022. TECHNIQUE: Transabdominal TECHNICAL QUALITY: Adequate. COMPARISON: None. FINDINGS: The uterus is anteverted and is in a midline position. The uterus measures 6.2 cm x 4.3 cm x 2.3 cm. Normal uterine cervix. The endometrium measures 4.3 mm in thickness, and is hyperechoic. There is no demonstrated endometrial mass. There is no demonstrated myometrial mass. I.U.D. - The patient does not have an I.U.D. The right ovary is visualized. The right ovary measures 2.4 cm x 1.5 cm x 0.9 cm. There is no right ovarian cyst or ovarian mass. There is no visualized right adnexal mass or complex lesion. There is normal arterial and normal venous vascularity. The left ovary is visualized. The left ovary measures 2.7 cm x 1.8 cm x 1.1 cm. There is no left ovarian cyst or ovarian mass. There is no visualized left adnexal mass or complex lesion. There is normal arterial and normal venous vascularity. There is no fluid in the cul-de-sac. The pre void volume of the bladder was 588 ml. US/Pelvic (Non ) IMPRESSION: Normal female pelvis. Electronically Signed: Bernardo Ryan MD at 10:33 EDT ,
== END | disposition home or self-care (01) ==
PROVIDERS: PCP Family Medicine; Referring Provider Nurse Practitioner Women's Health; Visit Provider Nurse Practitioner Women's Health
DX: K58.9 Irritable bowel syndrome, unspecified (principal); N92.6 Irregular menstruation, unspecified; Z13.220 Encounter for screening for lipoid disorders; R53.83 Other fatigue; R10.2 Pelvic and perineal pain
CPT/HCPCS: 36415; 76856; 80053; 80061; 82306; 82533; 82728; 83540; 84443; 85027; 85652

== ENCOUNTER 2023-06-23 08:41 | Day surgery (SDC) | payer BC, SELFPAY ==
--- OUTSIDE RECORDS SUMMARY | 2023-06-23 09:05 | XMS RPT_ITS | CCD ---
Author Name Unknown Address [address] [place] [address] Organization [facility] Care Team Providers Care Sales Account Associate Name Role Phone Jonathan Jimenez Unavailable Unavailable Montgomery, Reji Bales Unavailable Unavailable Thomae, Jonathan R Unavailable Unavailable Thomae, Jonathan R Unavailable Unavailable Montgomery, Reji Bales Unavailable Unavailable Newbill, Star Bullard Unavailable Unavailable Newbill, Star Bullard Unavailable Unavailable Montgomery, Reji Bales Unavailable Unavailable Newbill, Star Bullard Unavailable Unavailable Newbill, Star Bullard Unavailable Unavailable Montgomery, Reji Bales Unavailable Unavailable Newbill, Star Bullard Unavailable Unavailable Montgomery, Reji Bales Unavailable Unavailable Newbill, Star Bullard Unavailable Unavailable DarylCuco Unavailable Unavailable Daryl, Cuco Unavailable Unavailable Montgomery, Reji Bales Primary Care Provider Griffin Kumar Unavailable Tomás Washington Unavailable Unavailable [facility], Other Primary Ca re Provider Dr. Griffin Kumar Primary Care Miguelina marbin Washington, Ms. Tomás Polanco Attending Diego Washington, Ms. Tomás Polanco Attending Dr. Griffin Heaton Primary Care Miguelina marbin [place], Ms. Tomás Polanco Attending Diego Kumar, Dr. Griffin Romo Primary Care Miguelina marbin Blount MD, Lena Car Primary Care Provid er [facility], Other Primary Ca re Provider ROLANDO BAGLEY Attending Unavailable SELF, SELF Referring Unavailable [facility], OTHER Primary Ca re Unavailable [facility], OTHER Primary Ca re Unavailable SELF, SELF Referring Unavailable MILLI ARCHER Attending Unavailable ROLANDO BAGLEY Referring Unavailable ROLANDO BAGLEY Attending Unavailable [facility], OTHER Primary Ca re Unavailable PANDA, DENISSE LOPEZ Primary Care Unavailab le PANDA, DENISSE LOPEZ Admitting Unavailab le Panda SIENNA, Denisse Lopez Primary Care Provide r JESSICA WINN Attending Unavailable PANDA, DENISSE LOPEZ Referring Unavailab le PANDA, DENISSE LOPEZ Primary Care Unavailab le PANDA, DENISSE LOPEZ Admitting Unavailab le GRISELDA, INESSA PEREZ Attending Unavailable GRISELDA, INESSA PEREZ Admitting Unavailable FREUNDLICH, LENA CAR [facility] Unavai lable PANDA, DENISSE LOPEZ Primary Care Unavailab le PANDA, DENISSE LOPEZ Attending Unavailab le LAFON, ROSA POLANCO Attending Unavailable FREUNDLICH, LENA [facility] Unavai lable PANDA, DENISSE LOPEZ Primary Care Unavailab le PANDA, DENISSE LOPEZ Attending Unavailab le PANDA, DENISSE LOPEZ Primary Care Unavailab le PANDA, DENISSE LOPEZ Attending Unavailab le FREUNDLICH, LENA [facility] SRIDHAR Yeager Attending Unavail able Allergies Allergy Classification Reported Allergen(s) Allergy Type Date of Onset Reaction(s) Facility (1 source) azithromycin; Translations: [Zithromax Z-Blaise] [facility] sources) sulfamethoxazole / trimethoprim; Translations: [Bactrim] Drug Allergy [facility] Repository (20 sources) Azithromycin; Translations: [AZITHROMYCIN] Drug Allergy 07-07-19 18 [facility] Work Phone: (20 sources) Sulfamethoxazole / Trimethoprim; Translations: [SULFAMETHOXAZOLE-TR IMETHOPRIM] Drug Allergy 05-26-19 17 [facility] Work Phone: (3 sources) Azithromycin Drug Allergy [facility] (1 source) Sulfamethoxazole Drug Allergy 04-05-20 [facility] (2 sources) Trimethoprim Drug Allergy 04-05-20 [facility] (1 source) Sulfamethoxazole Propensity to adverse reactions to drug 04-05-20 [facility] Medications Current Medications Medication Drug Class(es) Dates Sig (Normalized) Sig (Original) amoxicillin 500 mg oral capsule (4 sources) Penicillin-class Antibacterial Start: 05-16-2022 End: 05-23-2022 take 1 capsule by mouth every twelve hours Amoxicillin 500 MG capsule Take 1 capsule by mouth every 12 hours for 7 days. 14 capsule 0 05/16/2022 05/23/2022 Active Completed/Discontinued Medications Medication Drug Class(es) Dates Sig (Normalized) Sig (Original) bisacodyl 5 mg delayed release oral tablet (8 sources) Stimulant Laxative Start: 06-20-2018 End: 06-27-2018 bisacodyl (DULCOLAX) [address] Indications: Abdominal pain, unspecified abdominal location Take As written instructions given. 10 tablet 0 06/20/2018 06/27/2018 Discontinued Cholecalciferol (17 sources) Vitamin D End: 05-01-2023 Cholecalciferol (D-1000 PO) Take by mouth. 0 05/01/2023 Discontinued (Patient Preference) Problems Active Problems Problem Classification Problem Date Documented Da te Episodic/Chronic Anxiety disorders (17 sources) Anxiety; Translations: [Anxiety disorder, unspecified] Onset: 2 07-06-2017 Chronic Esophageal disorders (1 source) Gastroesophageal reflux disease; Translations: [Gastro-esophageal reflux disease without esophagitis] Onset: 4 05-17-2023 Chronic Genitourinary symptoms and ill-defined conditions (6 sources) Increased frequency of urination; Translations: [Frequency of micturition] Onset: 4 05-01-2023 Episodic Headache; including migraine (1 source) Headache; including migraine; Translations: [Headache, unspecified] Onset: 2 Other ear and sense organ disorders (1 source) Otalgia, left ear; Translations: [Otalgia, left ear] Onset: 2 Episodic Other gastrointestinal disorders (1 source) Irritable bowel syndrome with diarrhea; Translations: [Irritable bowel syndrome with diarrhea] Chronic Other gastrointestinal disorders (1 source) History of irritable bowel syndrome; Translations: [Personal history of other diseases of the digestive system] Onset: 4 05-17-2023 Episodic Other nutritional; endocrine; and metabolic disorders (1 source) Obese class I; Translations: [Obesity, unspecified] Onset: 4 05-01-2023 Chronic Other nutritional; endocrine; and metabolic disorders (2 sources) Body mass index 30+ - obesity; Translations: [Obesity, unspecified] Onset: 4 06-07-2023 Chronic Other nutritional; endocrine; and metabolic disorders (2 sources) Obesity, unspecified; Translations: [Obesity, unspecified] Onset: 4 Chronic Other screening for suspected conditions (not mental disorders or infectious disease) (6 sources) Encounter for screening for diabetes mellitus; Translations: [Encounter for screening for lipoid disorders] Onset: 4 Episodic Other upper respiratory disease (5 sources) Sore throat - chronic; Translations: [Chronic pharyngitis] Onset: 3 Resolved: 4 12-09-2022 Chronic Other upper respiratory disease (2 sources) Chronic pharyngitis; Translations: [Chronic pharyngitis] Onset: 3 Chronic Other upper respiratory infections (9 sources) Acute sinusitis; Translations: [Acute sinusitis, unspecified] Onset: 2 11-29-2021 Episodic Past or Other Problems Problem Classification Problem Date Documented Da te Episodic/Chronic Abdominal pain (20 sources) Abdominal pain; Translations: [Unspecified abdominal pain] Onset: 07-13-2016 07-13-2016 Episodic Conditions associated with dizziness or vertigo (2 sources) Dizziness; Translations: [Dizziness] Onset: 05-16-2022 Episodic Contraceptive and procreative management (1 source) Contraception ; Translations: [Encounter for surveillance of contraceptives, unspecified contraceptive] Episodic Gastrointestinal hemorrhage (13 sources) Rectal hemorrhage; Translations: [Hemorrhage of anus and rectum] Onset: 06-20-2018 06-20-2018 Episodic Mood disorders (2 sources) Mood disorders Onset: 07-06-2017 Resolved: 07-06-2017 07-06-2017 Nausea and vomiting (7 sources) Nausea; Translations: [Nausea] Onset: 12-09-2022 Resolved: 05-17-2023 12-09-2022 Episodic Other circulatory disease (5 sources) Clearing throat - hawking; Translations: [Other specified symptoms and signs involving the circulatory and respiratory systems] Onset: 12-09-2022 Resolved: 05-17-2023 12-09-2022 Episodic Other circulatory disease (2 sources) Other specified symptoms and signs involving the circulatory and respiratory systems; Translations: [Other specified symptoms and signs involving the circulatory and respiratory systems] Onset: 12-09-2022 Episodic Other gastrointestinal disorders (13 sources) Diarrhea; Translations: [Diarrhea, unspecified] Onset: 06-20-2018 06-20-2018 Episodic Other gastrointestinal disorders (6 sources) Heartburn; Translations: [Heartburn] Onset: 12-09-2022 Resolved: 05-17-2023 12-09-2022 Episodic Other gastrointestinal disorders (5 sources) Excessive belching; Translations: [Eructation] Onset: 12-09-2022 Resolved: 05-17-2023 12-09-2022 Episodic Other gastrointestinal disorders (5 sources) Abdominal bloating; Translations: [Abdominal distension (gaseous)] Onset: 12-09-2022 Resolved: 05-17-2023 12-09-2022 Episodic Other gastrointestinal disorders (1 source) Heartburn; Translations: [Heartburn] Onset: 12-09-2022 Episodic Other gastrointestinal disorders (2 sources) Eructation; Translations: [Eructation] Onset: 12-09-2022 Episodic Other gastrointestinal disorders (2 sources) Abdominal distension (gaseous); Translations: [Abdominal distension (gaseous)] Onset: 12-09-2022 Episodic Other upper respiratory disease (1 source) Nasal congestion; Translations: [Nasal congestion] Onset: 11-29-2021 Episodic Unclassified (1 source) Establish Care Onset: 05-17-2023 Results Test Name Value Interpretation Reference Range Facil ity Vital Signs Date Time Vital Sign Value Performing Clinician Elva mueller 05-01-2023 16:59-0500 Body height 172.7 cm Rolando CISNEROS Work Phone: [facility] 05-01-2023 16:59-0500 Body mass index (BMI) [Ratio] 31.63 kg/m2 Rolando CISNEROS Work Phone: [facility] 05-01-2023 16:59-0500 Body temperature 97 [degF] Rolando Bagley EVENT MARKETING ASSISTANT-ELECTRICAL DESIGNER Work Phone: [facility] 05-01-2023 16:59-0500 Body weight 94.35 kg Rolando Bagley EVENT MARKETING ASSISTANT-ELECTRICAL DESIGNER Work Phone: [facility] 05-01-2023 16:59-0500 Diastolic blood pressure 65 mm[Hg] Rolando Bagley EVENT MARKETING ASSISTANT-ELECTRICAL DESIGNER Work Phone: [facility] 05-01-2023 16:59-0500 Heart rate 76 /min Rolando Bagley EVENT MARKETING ASSISTANT-ELECTRICAL DESIGNER Work Phone: [facility] 05-01-2023 16:59-0500 Respiratory rate 16 /min Rolando Bagley EVENT MARKETING ASSISTANT-ELECTRICAL DESIGNER Work Phone: [facility] 05-01-2023 16:59-0500 SaO2% (BldA) [Mass fraction] 99 % Rolando Bagley EVENT MARKETING ASSISTANT-ELECTRICAL DESIGNER Work Phone: [facility] 05-01-2023 16:59-0500 Systolic blood pressure 113 mm[Hg] Rolando Bagley EVENT MARKETING ASSISTANT-ELECTRICAL DESIGNER Work Phone: [facility] 12-09-2022 13:13-0400 Body height 172.7 cm Rosa Pinkon ELECTRICAL DESIGNER Work Phone: [facility] 12-09-2022 13:13-0400 Body mass index (BMI) [Ratio] 30.26 kg/m2 Rosa Lafon ELECTRICAL DESIGNER Work Phone: [facility] 12-09-2022 13:13-0400 Body weight 90.27 kg Rosa Lafon ELECTRICAL DESIGNER Work Phone: [facility] 12-09-2022 13:13-0400 Diastolic blood pressure 83 mm[Hg] Rosa Lafon ELECTRICAL DESIGNER Work Phone: [facility] 12-09-2022 13:13-0400 Heart rate 98 /min Rosa Lafon ELECTRICAL DESIGNER Work Phone: [facility] 12-09-2022 13:13-0400 SaO2% (BldA) [Mass fraction] 98 % Rosa Paige ELECTRICAL DESIGNER Work Phone: [facility] 12-09-2022 13:13-0400 Systolic blood pressure 124 mm[Hg] Rosa Paige ELECTRICAL DESIGNER Work Phone: [facility] 05-16-2022 14:24-0500 Body mass index (BMI) [Ratio] 30.04 kg/m2 Milli Escobaris EVENT MARKETING ASSISTANT-ELECTRICAL DESIGNER Work Phone: [facility] 05-16-2022 14:24-0500 Body temperature 97.9 [degF] Milli Archer EVENT MARKETING ASSISTANT-ELECTRICAL DESIGNER Work Phone: [facility] 05-16-2022 14:24-0500 Body weight 89.63 kg Milli Archer EVENT MARKETING ASSISTANT-ELECTRICAL DESIGNER Work Phone: [facility] 05-16-2022 14:24-0500 Diastolic blood pressure 78 mm[Hg] Milli Archer EVENT MARKETING ASSISTANT-ELECTRICAL DESIGNER Work Phone: [facility] 05-16-2022 14:24-0500 Heart rate 82 /min Milli Archer EVENT MARKETING ASSISTANT-ELECTRICAL DESIGNER Work Phone: [facility] 05-16-2022 14:24-0500 Respiratory rate 16 /min Milli Archer EVENT MARKETING ASSISTANT-ELECTRICAL DESIGNER Work Phone: [facility] 05-16-2022 14:24-0500 SaO2% (BldA) [Mass fraction] 99 % Milli Archer EVENT MARKETING ASSISTANT-ELECTRICAL DESIGNER Work Phone: [facility] 05-16-2022 14:24-0500 Systolic blood pressure 134 mm[Hg] Milli Archer EVENT MARKETING ASSISTANT-ELECTRICAL DESIGNER Work Phone: [facility] 03-09-2022 17:20-0500 Body height 173 cm Hernandoramirojose Kumar Other Phone: [facility] 03-09-2022 17:20-0500 Body temperature 97.88 [degF] Christopher Ranney Other Phone: [facility] 03-09-2022 17:20-0500 Diastolic blood pressure 75 mm[Hg] Christopher Ranney Other Phone: [facility] 03-09-2022 17:20-0500 Heart rate 76 /min Christopher Ranney Other Phone: [facility] 03-09-2022 17:20-0500 SaO2% (BldA) [Mass fraction] 97 % Christopher Ranney Other Phone: [facility] 03-09-2022 17:20-0500 Systolic blood pressure 108 mm[Hg] Christopher Ranney Other Phone: [facility] 11-29-2021 10:20-0400 Body height 172 cm Christopher Skylersusan Other Phone: [facility] 11-29-2021 10:20-0400 Body temperature 97.16 [degF] Christopher Ranney Other Phone: [facility] 11-29-2021 10:20-0400 Diastolic blood pressure 69 mm[Hg] Christopher Ranney Other Phone: [facility] 11-29-2021 10:20-0400 Heart rate 110 /min Christopher Skylerney Other Phone: [facility] 11-29-2021 10:20-0400 SaO2% (BldA) [Mass fraction] 97 % Christopher Ranney Other Phone: [facility] 11-29-2021 10:20-0400 Systolic blood pressure 102 mm[Hg] Christopher Ranney Other Phone: [facility] 09-18-2021 14:44-0400 Body height 172.7 cm Christopher Stacy Other Phone: [facility] 09-18-2021 14:44-0400 Body temperature 97.7 [degF] Griffin Kumar Other Phone: [facility] 09-18-2021 14:44-0400 Diastolic blood pressure 84 mm[Hg] Griffin Kumar Other Phone: [facility] 09-18-2021 14:44-0400 Heart rate 99 /min Griffin Kumar Other Phone: [facility] 09-18-2021 14:44-0400 Respiratory rate 20 /min Griffin Kumar Other Phone: [facility] 09-18-2021 14:44-0400 SaO2% (BldA) [Mass fraction] 100 % Griffin Kumar Other Phone: [facility] 09-18-2021 14:44-0400 Systolic blood pressure 125 mm[Hg] Griffin Kumar Other Phone: [facility] 06-27-2018 10:04-0400 BMI (Body Mass Index) 24.94 kg/m2 [facility] 06-27-2018 10:04-0400 Body Temperature 97.81 [degF] [facility] 06-27-2018 10:04-0400 BP Diastolic 76 mm[Hg] [facility] 06-27-2018 10:04-0400 BP Systolic 123 mm[Hg] [facility] 06-27-2018 10:04-0400 Height 172.7 cm [facility] 06-27-2018 10:04-0400 Pulse (Heart Rate) 76 /min [facility] 06-27-2018 10:04-0400 Pulse Oximetry 97 % [facility] 06-27-2018 10:04-0400 Respiratory Rate 16 /min [facility] 06-27-2018 10:04-0400 Weight 74.39 kg [facility] 05-14-2018 12:04-0500 BMI (Body Mass Index) 25.04 kg/m2 Marisa Regalado [facility] Work Phone: 05-14-2018 12:04-0500 Body Temperature 98.91 [degF] Marisa [facility] Work Phone: 05-14-2018 12:04-0500 BP Diastolic 68 mm[Hg] [facility] Work Phone: 05-14-2018 12:04-0500 BP Systolic 118 mm[Hg] Marisa [facility] Work Phone: 05-14-2018 12:04-0500 Height 172.1 cm [facility] Work Phone: 05-14-2018 12:04-0500 Pulse (Heart Rate) 86 /min [facility] Work Phone: 05-14-2018 12:04-0500 Pulse Oximetry 98 % [facility] Work Phone: 05-14-2018 12:04-0500 Respiratory Rate 16 /min [facility] Work Phone: 05-14-2018 12:04-0500 Weight 74.16 kg [facility] Work Phone: Encounters Encounter Date Encounter Type Care Provider Facility Start: 06-18-[address] [facility]ulatory Start: 06-07-2023 End: 06-11-2023 ambulatory JESSICA WINN [facility] Start: 06-07-2023 End: 06-07-2023 Nutrition therapy Denisse Mosqueda PA-C Work Phone: [facility] Nutritional Services Procedures Date Procedure Procedure Detail Performing Clinician Start: 05-17-2023 Adult depression screening assessment Jessica Winn RD Start: 05-01-2023 Urnls dip stick/tablet rgnt non-auto w/o micrscp Rolando Bagley EVENT MARKETING ASSISTANT-ELECTRICAL DESIGNER Work Phone: Start: 12-11-2019 Follow-up visit Start: 06-27-2018 Colonoscopy Griffin Kumar Work Phone: Start: 06-27-2018 Esophagogastroduodenoscopy transoral diagnostic Griffin Kumar Work Phone: Start: 06-27-2018 Choriogonadotropin ( test) [Presence] in Urine Rajendra Hope Work Phone: Start: 06-20-2018 Assay of amylase Palmalachi K Vikash Work Phone: Start: 06-20-2018 Assay of iron Palani K Vikash Work Phone: Start: 06-20-2018 Assay of lipase Palani K Vikash Work Phone: Start: 06-20-2018 Assay of thyroid stimulating hormone tsh Palmalachi K Vikash Work Phone: Start: 06-20-2018 B12 & FOLATE Palmalachi K Vikash Work Phone: Start: 06-20-2018 C-reactive protein Palmalachi K Vikash Work Phone: Start: 06-20-2018 CBC, EDIF, PLATELET Palani K Vikash Work Phone: Start: 06-20-2018 Comprehensive metabolic panel Kimmy ahmadi Work Phone: Start: 06-20-2018 Iaad ia hiv-1 ag w/hiv-1 & hiv-2 antbdy single Palmalachi Barnett Vikash Work Phone: Start: 06-20-2018 Sedimentation rate rbc automated Palmaalchi Barnett Vikash Work Phone: Start: 06-20-2018 Diagnostic radiography of chest, combined PA and lateral Palmalachi Barnett Vikash Work Phone: Start: 04-27-2018 End: 04-27-2018 LABS (OUTSIDE) Historical Provider Plan of Treatment Date Care Activity Detail Author Start: 12-19-2030 Tetanus vaccination [facility] Start: 05-17-2024 Depression screening using PHQ-9 (Patient Health Questionnaire 9) score Depression Screening (PHQ-2/9) [facility] Start: 05-17-2024 History and physical examination, annual for health maintenance Wellness Visit [facility] Start: 11-15-2023 End: 11-15-2023 Patient encounter procedure 11/15/2023 12:20 PM EDT Office Visit [facility] [address] [facility] [address] [place] [id number] Denisse Mosqueda PA-C [address] [place] [address] [place] [address] [facility] Start: 07-14-2023 End: 07-14-2023 Nutrition therapy 07/14/2023 11:30 AM EDT Nutrition [facility] [address] [place] [address] Jessica Winn, RD [facility] Start: 05-01-2023 End: 05-01-2024 Bacteria identified in Urine by Culture [facility] Payers Date Payer Category Payer Unknown [id number] 2020 Private Health Insurance [id number] 2020 Unknown [id number] 2016 Unknown 2016 Unknown JEROMY PINZON O PPO POS xxxxxxxxxxxx 2016-Present [id number] 1995 Unknown [id number] .[id number] 1995 Unknown [id number] .9 1995 Unknown [id number] .9 1995 Unknown [id number] [id number] .[id number] 1995 Unknown [id number] [id number] .983 1995 Unknown [id number] [id number] .983 1995 Unknown [id number] [id number] 1995 Unknown [id number] [id number] .903 1995 Unknown [id number] [id number] .903 1995 Unknown [id number] [id number] .903 1995 Unknown [id number] [id number] .903 1995 Unknown [id number] [id number] .903 1995 Unknown [id number] .903 1995 Unknown [id number] [place] [id number] Social History Date Type Detail Facility Start: 05-14-2018 End: 05-17-2023 Tobacco smoking status NHIS Never smoker [facility] Start: 1995 Sex Assigned At Not on file [facility] Work Phone: Start: 05-14-2018 Alcohol Comment occasional [facility] Tobacco smoking consumption unknown [facility] Start: 12-18-2016 End: 05-17-2023 Tobacco use and exposure Smokeless tobacco non-user [facility] Start: 05-16-2022 End: 05-17-2023 Alcohol intake Current drinker of alcohol (finding) [facility] Start: 05-16-2022 End: 05-17-2023 Alcohol intake [facility] Start: 05-01-2023 End: 05-17-2023 Gender identity Not on file [facility] Gender identity Identifies as fe male gender (finding) [facility] Frequency of Communication with Friends and Family Not on file [facility] (I/We) worried wheth er (my/our) food would run out before (I/we) got money to buy more. Never true [facility] Start: 05-17-2023 Alcohol Comment social [facility] Clinical Notes 05-16-2022 to 06-07-2023 Jessica Winn, - 06/07/2023 11:19 AM Mariah Bagley, [facility] - 05/01/2023 4:40 PM Rosa Whipple, [facility] - 12/09/2022 1:20 PM Nadege Archer, [facility] - 05/16/2022 1:55 PM ESTAttachments Note Date & Type Note Facility 06-07-2023 History of Present illness Narrative Patient Name: Ml Means Patient : 1995 Primary Care Provider: Denisse Mosqueda PA-C Referred By: Denisse Mosqueda,* Referral Diagnosis: Obesity Start Time: 1120 End Time: 1225 Nutrition Diagnosis: Food and nutrition related knowledge deficit related to lack of exposure to nutrition information as evidenced by patient interview Nutrition Goals: I will trial a probiotic supplement daily. I will balance my meals using plate method and keep my carbohydrate intake to 45g or less per meal. I will start using elliptical 3-5 days a week. Follow Up: Follow up appointment scheduled by patient Assessment: Pt reporting long history of IBS with EDG in 2019. 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 Pt has found IBS triggers to be pork products which pt avoids completely and fried foods which pt limits and major shifts in fiber intake. Pt reports IBS more characterizes by pain, cramping, urgency, sweaty, anxious after certain meals. Stools loose but no significant diarrhea. Pt has been on probiotic in past but not currently. Reports increased stress with last job but feels current position has lowered stress level. Most recent dx of prediabetes with elevated FBS. Pt reports history of lightheadedness when hungry and feels could be blood sugar dropping. Pt with 3 day food records today. Consuming 3 meals with snacks. Pt craving sweets and often choosing at snacks. Pt reports hungry often and will even wake up feeling hungry in middle of night. Pt meals with protein and carb balance at most meals however CHO amounts range from 40-80g. Pt is careful with addition of fruit and vegetables with fiber content and diet does appear low in both. Reason for Visit: wt management Support Person Present: Other Social Support: Language or Literacy Factors: Height: 68.5 Current Weight: 201# BMI: 30 BMI Classification: Obese Class I (30.0-34.9) Weight History: Pt reports wt gain of 10-15# in last year Wt Readings from Last 10 Encounters: 05/17/23 93.4 kg (206 lb) 12/09/22 90.3 kg (199 lb) this last year and moved back home to [facility] Diet History/Recall: 3 meals with snacks Food Purchase/Prep: self Breakfast: hash browns, 2 eggs, salsa, mozzarella cheese Lunch: 04/20 [facility] sub- turkey, cheese, lettuce, tomato, pickles, sundeep chip cookie Dinner: fish tacos, tilapia, lettuce, salsa, sour cream, 2 taco shells Snacks: kit chanell mini, popcorn, cheerios with milk, yogurt or dill pickle chips Daily Fluids: water - drinking at least 64+oz/day but pt report this is much less then she had done in the past Alcohol use: none Tobacco use: none Meals Away From Home:1-2 times a week PMHx: Past Medical History: Diagnosis Date GERD (gastroesophageal reflux disease) Irritable bowel syndrome Current/Pertinent Medications: imodium, Prilosec, aldactone, dicyclomine Lab Values: Glucose 107 on 05/28/23 No results found for: HGBA1C Lab Results Component Value Date CHOL 211 (H) 05/28/2023 Lab Results Component Value Date TRIG 153 (H) 05/28/2023 Lab Results Component Value Date HDL 59 05/28/2023 No results found for: LDL Nutrition Focused Findings: Dentition: none GI/food intolerances: pork and greasy foods intolerant Food allergies: none Cultural or Yazdanism dietary needs: Current Activity Level: Lightly Active- 6000 steps/day Was working out regularlly- lift weight, elipital- just bought elipitacal for home, stationary bike as well Estimated Nutritional Needs: Calorie Needs: 1900kcal/day (miff st jeor X 1.3-600) 165g Carbohydrate/day (35% kcal) Intervention/Education Provided: Prediabetes and prevention, exercise, probiotics, fiber, meal planning and macronutrient balance Patient/Family Education: Learner: patient Readiness: action - ready to set action plan and implement Method: explanation and handout Response: needs reinforcement Education Materials Provided: meal and snack planning Monitoring/Evaluation: Weight, Food Record/Recall, Meal Planning, Physical Activity, Medication Management, Goal Assessment This note has been communicated to referring healthcare provider. JUAN Jefferson RDN Office documented in this encounter [facility] 05-01-2023 History of Present illness Narrative HPI lM Means female 1995 presents to the [facility] with Chief Complaint Patient presents with Urinary Pain Frequency started a few days Patient presents with urinary frequency, urgency and dysuria that started 3 days ago. States the dysuria has progressed to her being uncomfortable sitting at this point. Denies any fever or chills. States she has had urinary tract infections in the past and this feels the same. Denies any chance of . History Allergies Allergen Reactions Azithromycin Hives Other reaction(s): Rash, Unknown Other reaction(s): Hives Sulfamethoxazole-Trimethoprim Rash Sulfamethoxazole Other reaction(s): Unknown Trimethoprim Other reaction(s): Unknown Current Outpatient Medications Medication Sig Apri 0.15-30 MG-MCG tablet Take 1 tablet by mouth daily. Drospiren-Eth Estrad-Levomefol (BEYAZ) 3-0.02-0.451 MG Tab Take 1 tablet by mouth daily. fluticasone 50 MCG/ACT Suspension nasal spray 2 sprays daily. omeprazole [address] capsule Take 1 capsule by mouth 2 times daily. omeprazole [address] capsule Take 1 capsule by mouth daily. Spironolactone 100 MG tablet TAKE ONE TABLET NIGHTLY WITH A FULL GLASS OF WATER. dicyclomine 20 MG tablet Take 1 tablet by mouth every 6 hours. For abdominal spasms Loratadine 10 MG tablet Take 1 tablet by mouth. Meclizine 25 MG tablet Take 1-2 tablet PO TID as needed dizziness Nitrofurantoin, macrocrystal-monohydrate, 100 MG capsule Take 1 capsule by mouth 2 times daily for 7 days. Take w/ food/milk Phenazopyridine 200 MG tablet Take 1 tablet by mouth 3 times daily for 2 days. triamcinolone 0.1 % Cream 1 Application by Topical route 2 times daily as needed for Itching.. Family History Problem Relation Age of Onset No known problems Mother No known problems Father Lung Cancer Other Colorectal Cancer Other Breast Cancer Other Cancer- Other Other Bone Thyroid Disease Other Myocardial Infarction Maternal Grandfather Past Medical History: Diagnosis Date Diarrhea IBS (irritable bowel syndrome) Ovarian cyst Past Surgical History: Procedure Laterality Date COLONOSCOPY DIAGNOSTIC 04/23/2022 EGD DIAGNOSTIC 04/23/2022 EGD DIAGNOSTIC N/A 06/27/2018 Laterality: N/A; Surgeon: Kimmy Suh MD; Location: [facility] COLONOSCOPY DIAGNOSTIC N/A 06/27/2018 Laterality: N/A; Surgeon: Kimmy Suh MD; Location: [facility] ENDOSCOPY ORAL SURGERY 2011 Social History Socioeconomic History Marital status: Single Spouse name: Not on file Number of children: Not on file Years of education: Not on file Highest education level: Not on file Occupational History Not on file Tobacco Use Smoking status: Never Smokeless tobacco: Never Vaping Use Vaping Use: Never used Substance and Sexual Activity Alcohol use: Yes Alcohol/week: 1.0 standard drink of alcohol Types: 1 Cans of beer per week Comment: occasional Drug use: Never Sexual activity: Yes Partners: Male control/protection: Pill Other Topics Concern Service Not Asked Blood Transfusions Not Asked Caffeine Concern Not Asked Occupational Exposure Not Asked Hobby Hazards Not Asked Sleep Concern Not Asked Stress Concern Not Asked Weight Concern Not Asked Special Diet Not Asked Back Care Not Asked Exercise Not Asked Bike Helmet Not Asked Seat Belt Not Asked Domestic Violence No Social History Narrative Not on file Social Determinants of Health Financial Resource Strain: Not on file Food Insecurity: Not on file Transportation Needs: Not on file Physical Activity: Not on file Stress: Not on file Social Connections: Not on file Intimate Partner Violence: Not on file Housing Stability: Not on file ROS Review of Systems 8 systems reviewed with patient, negative unless specifically mentioned in history of present illness PHYSICAL EXAM Visit Vitals BP 113/65 Pulse 76 Temp 97 F (36.1 C) (Temporal) Resp 16 Ht 1.727 m (5' 8 ) Wt 94.3 kg (208 lb) LMP 04/21/2023 SpO2 99% BMI 31.63 kg/m Physical Exam Vitals and nursing note reviewed. Constitutional: Appearance: Normal appearance. HENT: Head: Normocephalic. Right Ear: Tympanic membrane, ear canal and external ear normal. Left Ear: Tympanic membrane, ear canal and external ear normal. Nose: Nose normal. Mouth/Throat: Mouth: Mucous membranes are moist. Pharynx: Oropharynx is clear. Eyes: Conjunctiva/sclera: Conjunctivae normal. Cardiovascular: Rate and Rhythm: Normal rate and regular rhythm. Pulses: Normal pulses. Heart sounds: Normal heart sounds. Pulmonary: Effort: Pulmonary effort is normal. Breath sounds: Normal breath sounds. Abdominal: General: Bowel sounds are normal. Musculoskeletal: General: Normal range of motion. Cervical back: Normal range of motion and neck supple. Skin: General: Skin is warm and dry. Neurological: General: No focal deficit present. Mental Status: She is alert. RESULTS No results found for this or any previous visit (from the past 1 hour(s)). ASSESSMENT/PLAN 1. Urinary frequency 2. Dysuria Orders Placed This Encounter URINE CULTURE POCT URINALYSIS DIPSTICK NON AUTOMATED Phenazopyridine 200 MG tablet Nitrofurantoin, macrocrystal-monohydrate, 100 MG capsule I did write for the patient Pyridium for dysuria. I also started her on Macrobid as this was her requests as culture is pending. I did explain to her culture will results in 48-72 hours and she may receive a phone call to stop or change antibiotics. Increase oral fluids. Follow up if symptoms worsen or fails to improve over time. The risk and benefits of therapy were discussed with the patient. Alarm symptoms were discussed, along with reasons for contacting the office or going to the ER. Questions were answered for the patient. Follow up if symptoms worsen or fails to improve over time. If symptoms worsen patient was advised to follow up in our office, primary care provider or the Emergency Dept. Benefits, Risks, Contraindications, and Complications of recommended treatments were explained. The patient understands and agrees to proceed with plan. BLAYNE Angela 05/01/2023 documented in this encounter [facility] 12-09-2022 History of Present illness Narrative [facility] [address] ([address]) [facility] [address] [facility] [id number] Patient Name: Ml Means Age: 27 y.o. Gender: female Referring Physician: No ref. provider found Chief Complaint Patient presents with Heartburn Sore Throat belching Bloated Abdominal Pain regurgitation HPI: Patient Primary Symptoms are: heartburn, regurgitation, nausea, sore throat, bloating, and throat clearing Onset of Symptoms: Patient presents with complaints of reflux symptoms since she was a teenager. Today she complains of heartburn, regurgitation, nausea, sore throat, throat clearing, and bloating. Denies cough or hoarseness. Denies dysphagia. Denies vomiting. She states she has seen an ENT that told her she had inflammation from reflux. Her last EGD was on 04/[address] Hartman in [place]. 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 She is currently on Prilosec. She does have breakthrough symptoms. She takes TUMS for breakthrough symptoms. Frequency of Symptoms: Weekly Severity of Symptoms: increasing in severity Sleep Disruption: no Aggravating Factors: fatty or greasy foods, spicy foods, large meal, and garlic Alleviating Factors: PPI Medications Tried: Prilosec How many years on a PPI: 3 years HRQL SCORE: 17 Drug use: Denies Alcohol use: Denies Metal allergy: Denies Past Medical History: Diagnosis Date GERD (gastroesophageal reflux disease) Irritable bowel syndrome Past Surgical History: Procedure Laterality Date COLONOSCOPY 04/2022 Barb; normal ESOPHAGOGASTRODUODENOSCOPY 04/2022 Barb; intestinal metaplasia WISDOM TOOTH EXTRACTION Allergies Allergen Reactions Azithromycin Hives Bactrim [Sulfamethoxazole-Trimethoprim] Rash Current Outpatient Medications Medication Sig Dispense Refill drospirenone-e.estradioL-lm.FA 3-0.02-0.451 mg (24) (4) Tab Take 1 (one) tablet by mouth daily . spironolactone (ALDACTONE) 100 MG tablet TAKE 1 TABLET BY MOUTH EVERY DAY WITH A FULL GLASS OF WATER BEFORE BEDTIME loratadine (CLARITIN) 10 mg tablet Take 1 (one) tablet (10 mg total) by mouth . omeprazole (PRILOSEC) 40 MG capsule Take 1 (one) capsule (40 mg total) by mouth daily . No current facility-administered medications for this visit. History reviewed. No pertinent family history. REVIEW OF SYSTEMS Pertinent positives are listed in HPI, PMSH, SH, ALL, otherwise all systems reviewed below are negative. The following systems were reviewed: [x] Const (fevers, chills, wt. loss, fatigue) [x] CV (HTN, CP, BASSETT, edema, DVT) [x] Resp (SOB, pleurisy, asthma, apnea) [x] GI (N, V, D, C, M, abd pain, appetite) [x] Musc (back pain, joint stiffness, gout) [x] Neuro (seizures, syncope, paralysis) [x] Psych (depression, anxiety) [x] Endo (hot/cold intol, polyuria[DM]) [x] Hem/Lymph (Anemia, LA, bleeding) [x] Allerg/Immun (seasonal, immuniz) [x] Eyes (diplopia, cataracts) [x] ENT/mouth (dysphagia, epistaxis) [x] (dysuria, hematuria) [x] Skin/Breast (moles, rash, lumps, nipple changes) Pertinent Positives: See HPI Pertinent Negatives: See HPI Physical Exam: BP 124/83 Pulse 98 Ht 5' 8 Wt 90.3 kg (199 lb) SpO2 98% BMI 30.26 kg/m Body mass index is 30.26 kg/m . Constitutional: Well nourished, well developed person in no acute distress. Ambulates without difficulty. Head: Atraumatic and normocephalic. Face: Within normal limits. Eyes: Pupils equal, round, reactive to light. Sclera white. Mouth: Moist mucous membranes, normal dentation. Neck: supple, trachea midline,no masses, no incisions. Lymphatic: No cervical or inguinal lymphadenopathy. Heart: Regular rate and rhythm. Lungs: Clear to auscultation. Abdomen: Soft, non-distended, non-tender, no heptasplenomegaly, no umbilica, incisional, femoral, or inguinal hernias. Pelvis: Stable, non-tender. Skin: Warm, moist, normal skin turgor. Peripheral Vascular: Palapable carotid, radial, and femoral pulses, no peripheral edema. Neuropsych: Alert and oriented, judgement and insight intact. Normal Gait. Assessment: 1. Heartburn Case Request Operating Room: ESOPHAGOGASTRODUODENOSCOPY WITH ENDO FLIP 2. Gaseous regurgitation Case Request Operating Room: ESOPHAGOGASTRODUODENOSCOPY WITH ENDO FLIP 3. Bloating Case Request Operating Room: ESOPHAGOGASTRODUODENOSCOPY WITH ENDO FLIP 4. Chronic sore throat Case Request Operating Room: ESOPHAGOGASTRODUODENOSCOPY WITH ENDO FLIP 5. Chronic throat clearing Case Request Operating Room: ESOPHAGOGASTRODUODENOSCOPY WITH ENDO FLIP 6. Nausea Case Request Operating Room: ESOPHAGOGASTRODUODENOSCOPY WITH ENDO FLIP Orders Placed This Encounter Procedures Case Request Operating Room: ESOPHAGOGASTRODUODENOSCOPY WITH ENDO FLIP Plan: I had a detailed discussion with the patient about diagnostic testing. Risk, benefits, and alternatives were discussed prior to obtaining consent. EGD with Biopsy, EndoFlip Rosa Paige CNP documented in this encounter [facility] 05-16-2022 History of Present illness Narrative URGENT CARE eNCOUnter CHIEF COMPLAINT Dizziness (Dizzy on and off for about 1 week.) DEBBY Means is a 27 y.o. female who presents today for For dizziness episodes for approximately one week. The patient does report a low-grade temperature at home a couple days ago. She denies any other overt symptoms such as congestion and sore throat. She does have episodic headaches. She did try one of her father's meclizine pills yesterday which was helpful to her symptoms. REVIEW OF SYSTEMS Review of Systems Neurological: Positive for dizziness and headaches. All other systems reviewed and are negative. PAST MEDICAL HISTORY Past Medical History: Diagnosis Date Diarrhea IBS (irritable bowel syndrome) Ovarian cyst SURGICAL HISTORY Past Surgical History: Procedure Laterality Date COLONOSCOPY DIAGNOSTIC 04/23/2022 EGD DIAGNOSTIC 04/23/2022 EGD DIAGNOSTIC N/A 06/27/2018 Laterality: N/A; Surgeon: Kimmy Suh MD; Location[facility] COLONOSCOPY DIAGNOSTIC N/A 06/27/2018 Laterality: N/A; Surgeon: Kimmy Suh MD; Location: [facility] ORAL SURGERY 2011 CURRENT MEDICATIONS Current Outpatient Medications Medication Sig Dispense Refill dicyclomine 20 MG tablet Take 1 tablet by mouth every 6 hours. For abdominal spasms 30 tablet 0 Drospiren-Eth Estrad-Levomefol (BEYAZ) 3-0.02-0.451 MG Tab Take 1 tablet by mouth daily. 28 tablet 0 omeprazole [address] capsule Take 1 capsule by mouth 2 times daily. Amoxicillin 500 MG capsule Take 1 capsule by mouth every 12 hours for 7 days. 14 capsule 0 Cholecalciferol (D-1000 PO) Take by mouth. (Patient not taking: Reported on 05/16/2022) Cyanocobalamin (B-12 PO) Take by mouth. (Patient not taking: Reported on 05/16/2022) Meclizine 25 MG tablet Take 1-2 tablet PO TID as needed dizziness 30 tablet 0 SPIRONOLACTONE PO Take 1 tablet by mouth daily. (Patient not taking: Reported on 05/16/2022) triamcinolone 0.1 % Cream 1 Application by Topical route 2 times daily as needed for Itching.. (Patient not taking: Reported on 12/21/2020) 45 g 1 No current facility-administered medications for this visit. ALLERGIES Allergies Allergen Reactions Azithromycin Hives Other reaction(s): Rash, Unknown Other reaction(s): Hives Sulfamethoxazole-Trimethoprim Rash Sulfamethoxazole Other reaction(s): Unknown Trimethoprim Other reaction(s): Unknown FAMILY HISTORY Family History Problem Relation Age of Onset No known problems Mother No known problems Father Lung Cancer Other Colorectal Cancer Other Breast Cancer Other Cancer- Other Other Bone Thyroid Disease Other Myocardial Infarction Maternal Grandfather SOCIAL HISTORY Social History Socioeconomic History Marital status: Single Spouse name: Not on file Number of children: Not on file Years of education: Not on file Highest education level: Not on file Occupational History Not on file Tobacco Use Smoking status: Never Smokeless tobacco: Never Vaping Use Vaping Use: Never used Substance and Sexual Activity Alcohol use: Yes Alcohol/week: 1.0 standard drink Types: 1 Cans of beer per week Comment: occasional Drug use: Never Sexual activity: Yes Partners: Male control/protection: Pill Other Topics Concern Service Not Asked Blood Transfusions Not Asked Caffeine Concern Not Asked Occupational Exposure Not Asked Hobby Hazards Not Asked Sleep Concern Not Asked Stress Concern Not Asked Weight Concern Not Asked Special Diet Not Asked Back Care Not Asked Exercise Not Asked Bike Helmet Not Asked Seat Belt Not Asked Domestic Violence No Social History Narrative Not on file Social Determinants of Health Financial Resource Strain: Not on file Food Insecurity: Not on file Transportation Needs: Not on file Physical Activity: Not on file Stress: Not on file Social Connections: Not on file Intimate Partner Violence: Not on file Housing Stability: Not on file PHYSICAL EXAM BP 134/78 (BP Location: Right arm, BP Position: Sitting) Pulse 82 Temp 97.9 F (36.6 C) (Temporal) Resp 16 Wt 89.6 kg (197 lb 9.6 oz) SpO2 99% BMI 30.04 kg/m Smoking Status Never Physical Exam Vitals and nursing note reviewed. Constitutional: Appearance: Normal appearance. HENT: Right Ear: Tenderness present. A middle ear effusion is present. Left Ear: Tympanic membrane, ear canal and external ear normal. Nose: Nose normal. Mouth/Throat: Mouth: Mucous membranes are moist. Eyes: Extraocular Movements: Extraocular movements intact. Pupils: Pupils are equal, round, and reactive to light. Cardiovascular: Rate and Rhythm: Normal rate and regular rhythm. Pulses: Normal pulses. Heart sounds: Normal heart sounds. Pulmonary: Effort: Pulmonary effort is normal. Breath sounds: Normal breath sounds. Abdominal: General: Abdomen is flat. Palpations: Abdomen is soft. Musculoskeletal: Cervical back: Neck supple. Skin: General: Skin is warm and dry. Capillary Refill: Capillary refill takes less than 2 seconds. Neurological: General: No focal deficit present. Mental Status: She is alert and oriented to person, place, and time. Diagnosis, Assessment & Plan: Ml was seen today for dizziness. Diagnoses and all orders for this visit: Middle ear effusion, right Other orders - Meclizine 25 MG tablet; Take 1-2 tablet PO TID as needed dizziness - Amoxicillin 500 MG capsule; Take 1 capsule by mouth every 12 hours for 7 days. Physical exam revealed a right middle ear effusion. I did discuss other possible reasons with the patient and her mother as to why dizziness can occur. We will treat her however with a course of amoxicillin and meclizine. I did encourage her to follow up with her PCP to do further evaluation for possible migraines. I did recommend to discuss with her PCP to do baseline lab work as well. Patient mother agreed with this plan and patient stable on discharge. BLAYNE Gooden 05/16/2022 documented in this encounter [facility] 05-16-2022 Instructions BLAYNE Gooden - 05/16/2022 1:55 PM EST You have a right middle ear effusion. Take amoxicillin twice a day for 7 days. You may take Antivert for dizziness up to 3 times a day. I recommend taken [id number] antihistamine such as Magali, Claritin or Benadryl to help open your eustachian tubes and draining ear right ear. Please follow up with her PCP to have blood work done as we discussed. The following attachments cannot be sent through Care Everywhere.Serous Otitis Media (Mauritanian)documented in this encounter [facility] Diagnosis Heartburn- Primary Gaseous regurgitation Flatulence, eructation, and gas pain Bloating Flatulence, eructation, and gas pain Chronic sore throat Chronic pharyngitis Chronic throat clearing Nausea Nausea alone [facility] Diagnosis Heartburn- Primary Gaseous regurgitation Flatulence, eructation, and gas pain Bloating Flatulence, eructation, and gas pain Chronic sore throat Chronic pharyngitis Chronic throat clearing Nausea Nausea alone Heartburn Gaseous regurgitation Flatulence, eructation, and gas pain Bloating Flatulence, eructation, and gas pain Chronic sore throat Chronic pharyngitis Chronic throat clearing Nausea Nausea alone [facility] Urinary frequency Dysuria [facility] Diagnosis Obesity (BMI 30-39.9) [facility] Attachments The following attachments cannot be sent through Care Everywhere. * Dysuria (Mauritanian) [facility] Purpose Family History No Family History Records FoundNo Family History Records FoundNo Family History Records FoundNo Family History Records FoundNo Family History Records FoundNo Family History Records FoundNo Family History Records FoundNo Family History Records FoundNo Family History Records FoundNo Family History Records FoundNo Family History Records Found Advance Directives No Advanced Directives Records FoundNo Advanced Directives Records FoundNo Advanced Directives Records FoundNo Advanced Directives Records FoundNo Advanced Directives Records FoundNo Advanced Directives Records FoundNo Advanced Directives Records FoundNo Advanced Directives Records FoundNo Advanced Directives Records FoundNo Advanced Directives Records FoundNo Advanced Directives Records Found Instructions * Patient Instructions - Marisa Regalado CNP - 05/14/2018 12:19 PM EST Sinusitis (Antibiotic Treatment) The sinuses are air-filled spaces within the bones of the face. They connect to the inside of the nose. Sinusitis is an inflammation of the tissue that lines the sinuses. Sinusitis can occur during acold. It can also happen due to allergies to pollens and other particles in the air. Sinusitis can cause symptoms of sinus congestion and a feeling of fullness. A sinus infection causes fever, headache, and facial pain. There is often green or yellow fluid draining from the nose or into the back ofthe throat (post-nasal drip). You have been given antibiotics to treat this condition. Home care Take the full course of antibiotics as instructed. Do not stop taking them, even when you feel better. Drink plenty of water, hot tea, and other liquids. This may help thin nasal mucus. It also may helpyour sinuses drain fluids. Heat may help soothe painful areas of your face. Use a towel soaked in hot water. Or, loading dock hand the shower and direct the warm spray onto your face. Using a vaporizer along with a menthol rub at nightmay also help soothe symptoms. An expectorant with guaifenesin may help thin nasal mucus and help your sinuses drain fluids. You can use an [id number] decongestant, unless a similar medicine was prescribed to you. Nasal sprays work the fastest. Use one that contains phenylephrine or oxymetazoline. First blow your nose gently. Then use the spray. Do not use these medicines more often than directed on the label. If you do, your symptoms may get worse. You may also take pills that contain pseudoephedrine. Don t use products that combine multiple medicines. This is because side effects may be increased. Read labels. You can also ask the pharmacist for help. (People with high blood pressure should not use decongest ants. They can raise blood pressure.) Hxra-uom-noktifg antihistamines may help if allergies contributed to your sinusitis. Do not use nasal rinses or irrigation during an acute sinus infection, unless your healthcare provider tells you to. Rinsing may spread the infection to other areas in your sinuses. Use acetaminophen or ibuprofen to control pain, unless another pain medicine was prescribed to you.If you have chronic liver or kidney disease or ever had a stomach ulcer, talk with your healthcare provider before using these medicines. (Aspirin should never be taken by anyone under age 18 who is ill with a fever. It may cause severe liver damage.) Don't smoke. This can make symptoms worse. Follow-up care Follow up with your healthcare provider or our staff if you are better in 1 week. When to seek medical advice Call your healthcare provider if any of these occur: Facial pain or headache that gets worse Stiff neck Unusual drowsiness or confusion Swelling of your forehead or eyelids Vision problems, such as blurred or double vision Fever of 100.4 F (38 C) or higher, or as directed by your healthcare provider Seizure Breathing problems Symptoms don't go away in 10 days Prevention Here are steps you can take to help prevent an infection: Keep good hand washing habits. Don t have close contact with people who have sore throats, colds, or other upper respiratory infections. Don t smoke, and stay away from secondhand smoke. Stay up to date with of your vaccines. Date Last Reviewed: 02/17/201719992441-2864 [employer]. [address] [place] [address], [place] [address]. All rights reserved. This information is not intended as a substitute for professional medical care. Always follow yourhealthcare professional's instructions. in this encounter History of Present Illness * Marisa Regalado, ELECTRICAL DESIGNER - 05/14/2018 12:00 PM EST Formatting of this note may be different from the original. HPI Ml Means female 1995 presents to the [facility] with Chief Complaint Patient presents with Sinus Congestion s/sx started 4 days ago, complains of sinus congestion, sinus pain, sinus pressure, bilateral ear pain, a sore throat, sinus drainage, and a cough that is productive with yellow sputum. States is suseptible to sinus infections. Denies any fever. Presents with c/o sinus tenderness x 4 days with worsening sx. Associated sx includes sinus congestion, yellow post nasal drng, cough. States has freq sinusitis with last episode 12/04. Taking multiple OTCs without relief. History Allergies Allergen Reactions Azithromycin Hives Bactrim [Sulfamethoxazole-Trimethoprim] Rash Current Outpatient Prescriptions Medication Sig Cholecalciferol (D-1000 PO) Take by mouth. Cyanocobalamin (B-12 PO) Take by mouth. Drospiren-Eth Estrad-Levomefol (BEYAZ) 3-0.02-0.451 MG Tab Take 1 tablet by mouth daily. IRON PO Take by mouth. SPIRONOLACTONE PO Take 1 tablet by mouth daily. amoxicillin-clavulanate 875-125 MG Tab tablet Take 1 tablet by mouth every 12 hours for 10 days. norethindrone-ethinyl estradiol (ORTHO-NOVUM , 28,) 1-35 MG-MCG Tab Take 1 tablet by mouth daily. (Patient not taking: Reported on 05/14/2018 ) isegnupbesmqibf-nuqayxatgwpjwumk-lbvzGUWjtda (CAPMIST DM) 60-15-400 MG Tab tablet Take 1 tablet by mouth every 6 hours as needed. triamcinolone 0.1 % Cream 1 Application by Topical route 2 times daily as needed for Itching.. (Patient not taking: Reported on 07/06/2017 ) family history includes Breast Cancer in an other family member; Cancer- Other in an other family member; Colorectal Cancer in an other family member; Lung Cancer in an other family member; Myocardial Infarction in her maternal grandfather; No known problems in her father and mother; Thyroid Disease in an other family member. Past Medical History: Diagnosis Date Ovarian cyst No past surgical history on file. Social History Social History Marital status: Single Spouse name: N/A Number of children: N/A Years of education: N/A Occupational History Not on file. Social History Main Topics Smoking status: Never Smoker Smokeless tobacco: Never Used Alcohol use 0.6 oz/week 1 Cans of beer per week Comment: occasional Drug use: No Sexual activity: Yes Partners: Male control/ protection: Pill Other Topics Concern Domestic Violence No Social History Narrative No narrative on file ROS Review of Systems Constitutional: Negative. Skin: Negative. HENT: Positive for sinus pain. Eyes: Negative. Cardiovascular: Negative. Respiratory: Positive for cough. Gastrointestinal: Negative. Genitourinary: Negative. Musculoskeletal: Negative. Neurological: Negative. All other systems reviewed and are negative. PHYSICAL EXAM Visit Vitals BP 118/68 (BP Location: Right arm, BP Position: Sitting) Pulse 86 Temp 98.9 F (37.2 C) (Temporal) Resp 16 Ht 1.721 m (5' 7.75 ) Wt 74.2 kg (163 lb 8 oz) SpO2 98% BMI 25.04 kg/m Physical Exam Constitutional: She is oriented to person, place, and time and well-developed, well-nourished, and in no distress. HENT: Head: Normocephalic and atraumatic. Right Ear: Tympanic membrane normal. Left Ear: Tympanic membrane normal. Nose: Mucosal edema present. Right sinus exhibits maxillary sinus tenderness and frontal sinus tenderness. Left sinus exhibits maxillary sinus tenderness and frontal sinus tenderness. Mouth/Throat: Uvula is midline, oropharynx is clear and moist and mucous membranes are normal. Eyes: Pupils are equal, round, and reactive to light. Neck: Normal range of motion. Neck supple. Cardiovascular: Normal rate, regular rhythm and normal heart sounds. Pulmonary/Chest: Effort normal and breath sounds normal. Abdominal: Soft. Bowel sounds are normal. Musculoskeletal: Normal range of motion. Neurological: She is alert and oriented to person, place, and time. Skin: Skin is warm and dry. Psychiatric: Mood and affect normal. Nursing note and vitals reviewed. No results found for this or any previous visit (from the past 1 hour(s)). ASSESSMENT/PLAN 1. Acute sinusitis, recurrence not specified, unspecified location - amoxicillin-clavulanate 875-125 MG Tab tablet; Take 1 tablet by mouth every 12 hours for 10 days.Dispense: 20 tablet; Refill: 0 - bjsdwzuskilexfg-uarzvktsccnnwusi-mcexBEPksws (CAPMIST DM) 60-15-400 MG Tab tablet; Take 1 tablet by mouth every 6 hours as needed. Dispense: 30 tablet; Refill: 0 If symptoms worsen patient was advised to follow up in our office or the Emergency Dept. Benefits, Risks, Contraindications, and Complications of recommended treatments were explained. The patient understands and agrees to proceed with plan. Marisa Regalado CNP 05/14/2018 in this encounter* Bernie Castillo LPN - 06/20/2018 2:45 PM EST REVIEW OF SYSTEMS Patient Questionnaire: Upper ABD Pain: No Lower ABD Pain: Yes ABD Swelling: No Anal/ rectal Pain: No Belching: No Black Stools: No Bloating: Yes Change in Bowel Habits: No Constipation: Yes Dairy Intolerance: No Diarrhea: Yes Flatulence: Yes Heart Burn: No Mucus in Stool: Yes Nausea / Vomiting: No Pain w/ Bowel Movement: Yes Rectal Bleeding: No Rectal Urgency: No Reflux: No Soiling Stool / incontinence: No ROS: Constitutional Fever: no Weight Gain no Weight Loss yes Cardiovascular Chest Pain: no Palpitations: no Respiratory Oxygen: no Asthma: no Cough: no SOB: no GI Blood in Stool: Yes in the past Melena: no Hemorrhoids: No Pain Myalgia: no Joint pain: no Back Pain: no Hematologic Bruise Easily: no Bleed Easily: no Psychiatric Depression: no Insomnia: no Neurologic Headache: no Visual Impairment: no ENT Dysphagia: no Pain on Swallowing: no Endocrine Diabetes: no Thyroid Disorder: no VITAL SIGNS There were no vitals taken for this visit. Referring Doctor: Dr. Kumar for colonoscopy and EGD. No previous scopes done. Patient on iron supplement. Insurance Company: [employer] Video Shown: yes Schedule: July 04Wednesday for colonoscopy and EGD. documented in this encounter Assessments Diagnosis Acute sinusitis, recurrence not specified, unspecified location- Primary Diagnosis Abdominal pain, unspecified abdominal location- Primary Diagnosis Abdominal pain, unspecified abdominal location Diagnosis Abdominal pain, unspecified abdominal location Diagnosis Rectal bleeding Hemorrhage of rectum and anus Diarrhea, unspecified type Abdominal pain, unspecified abdominal location Diagnosis Abdominal pain, unspecified abdominal location Diagnosis Irritable bowel syndrome with diarrhea- Primary Irritable bowel syndrome Diagnosis Encounter for surveillance of contraceptives, unspecified contraceptive Additional Source Comments INFORMATION SOURCE (unrecogn ized section and content) DATE CREATED AUTHOR AUTHOR'S ORGANIZ ATION 10/12/2017 [facility] DATE CREATED AUTHOR AUTHOR'S ORGANIZ ATION 12/13/2019 [employer] DATE CREATED AUTHOR AUTHOR'S ORGANIZ ATION 09/19/2021 [facility] DATE CREATED AUTHOR AUTHOR'S ORGANIZ ATION 05/20/2022 [facility] DATE CREATED AUTHOR AUTHOR'S ORGANIZ ATION 05/02/2023 [facility] DATE CREATED AUTHOR AUTHOR'S ORGANIZ ATION 05/05/2023 [facility] DATE CREATED AUTHOR AUTHOR'S ORGANIZ ATION 06/02/2023 [facility] DATE CREATED AUTHOR AUTHOR'S ORGANIZ ATION 06/18/2023 [facility] DATE CREATED AUTHOR AUTHOR'S ORGANIZ ATION [facility] DATE CREATED AUTHOR AUTHOR'S ORGANIZ ATION 06/21/2023 [facility] Reason for Visit (unrecogniz ed section and content) Reason Comments Abdominal Pain Melena Weight Loss Reason Comments Results Status Reason Specialty Diagnoses / Procedures Re ferred By Contact Referred To Contact Diagnoses Abdominal pain, unspecified abdominal location Rectal bleeding Diarrhea, unspecified type Abdominal pain, unspecified abdominal location [R10.9] Rectal bleeding [K62.5] Diarrhea, unspecified type [R19.7] Procedures AK ESOPHAGOGASTRODUODENOSCOPY TRANSORAL DIAGNOSTIC AK COLONOSCOPY FLX DX W/COLLJ SPEC WHEN PFRMD EGD DIAGNOSTIC COLONOSCOPY DIAGNOSTIC Reason Comments Advice Only Reason Comments Follow-up Reason Comments Medication Request Reason Comments Dizziness Dizzy on and off for about 1 week. Reason Comments Heartburn Sore Throat belching Bloated Abdominal Pain regurgitation Reason Comments Urinary Pain Frequency started a few days Specialty Diagnoses / Procedures Referred By Contac t Referred To Contact Dietitian/Customer Care Agent / Nutrition Diagnoses Obesity (BMI 30-39.9) Denisse Mosqueda PA-C [address] [place] [address] Dr [address] [place] [id number] [facility] [address] [place] [address] Referral ID Status Reason Start Date Expiration Date Visits Requested Visits Authorized [id number] Authorized Specialty Services Required/Pat ient's Best Interest 05/17/2023 05/16/2024 3 3 <item><item><item> Privacy Markings (unrecogniz ed section and content) Section Author: Ankita Gregory PROHIBITION ON REDISCLOSURE OF CONFIDENTIAL INFORMATION This notice accompanies a disclosure of information concerning a client made to you with the consent of such client. Section Author: Ankita Gregory PROHIBITION ON REDISCLOSURE OF CONFIDENTIAL INFORMATION This notice accompanies a disclosure of information concerning a client made to you with the consent of such client. Section Author: Ankita Gregory PROHIBITION ON REDISCLOSURE OF CONFIDENTIAL INFORMATION This notice accompanies a disclosure of information concerning a client made to you with the consent of such client. Care Teams (unrecognized sec tion and content) Sales Account Associate Relationship Specialty Start Date End Date Lena Blount MD [address] [address] PCP - General Family Medicine 11/24/22 Sales Account Associate Relationship Specialty Start Date End Date Lena Blount MD [address] [address] PCP - General Family Medicine 11/24/22 Sales Account Associate Relationship Specialty Start Date End Date [facility], Other [address] [facility] [address] [place] [address] PCP - General 08/28/19 Sales Account Associate Relationship Specialty Start Date End Date Denisse Mosqueda PA-C [address] [facility] [address] [place] [address] PCP - General Physician Academic Services Professional 05/17/23 FOR RECORDS PERTAINING TO PATIENTS WHO ARE OR HAVE BEEN ENROLLED IN A CHEMICAL DEPENDENCY/SUBSTANCEABUSE PROGRAM, SOME INFORMATION MAY BE OMITTED. This clinical summary was aggregated from multiple sources. Caution should be exercised in using it in the provision of clinical care. This summary normalizes information from multiple sources, and as a consequence, information in this document may materially change the coding, format and clinical context of patient data. In addition, data may be omitted in some cases. CLINICAL DECISIONS SHOULD BE BASED ON THE PRIMARY CLINICAL RECORDS. [facility]. provides no warranty or guarantee of the accuracy or completeness of information in this document.
[2023-06-23 09:13] VITALS: BP 101/63; PULSE 76; RESP 16; TEMP 36.4; O2SAT 99; BMI 30.4
[2023-06-23 09:14] LABS: Internal QC Validated? YES +Cl - CLEAR BKGD; Pregnancy, Urine Negative Negative; Record Kit Lot#,Urine Preg HCG0000718086
[2023-06-23] MEDS: Lactated Ringers 1,000 ML 15 ML IV (09:25)
--- NOTE | 2023-06-23 09:45 | IMM_PTH ---
PATHOLOGY RESULTS PATIENT: ML GOODWIN LOC: EN U#:[id number] AGE/SX: 28/F ROOM: RE06/23/[address]: Dr. Kolton Hartman DO : 1995 BED: DIS: 06/23/2023 SPEC #: [id number] RECD: 06/24/23 13:04 STATUS: BRIGHT SONALI #: [id number] KLEVER: 06/23/23 09:[address]: Kolton Hartman DEPT: IMMUNOHISTOCHEMISTRY RECD BY: Janine Ruiz ENTERED: 06/24/23 13:05 SP TYPE: IMMUNO Tissues: Esophagus, NOS Procedures: P53 (initial) KI-67 (add) PHYSICIAN & INSTITUTION [place] [address] SPECIMEN INFORMATION: Tissue Source: Distal esophagus Clinical Info: GERD, De Los Santos's esophagus, irritable bowel syndrome Specimen Number: [id number] CPT code: 20464, 13991 METHODOLOGY: Deparaffinized sections of prefer/formalin-fixed tissue or PAP/DQ stained slides are incubated with monoclonal/polyclonal antibodies/oligonucleotide probes. Localization is made via biotin free immunoperoxidase method. Appropriate controls are performed and reacted as expected. Results on target cell population are indicated in the following table: RESULTS: ANTIBODY / CLONE RESULT P53 (DO-7) negative (null pattern) Ki-67 (30-9) positive, very low These tests were developed and their performance characteristics determined by [facility]. They may not have been cleared or approved by the U.S. Food and Drug Administration. The FDA has determined that such clearance or approval is not necessary. The above immunohistochemical/dualISH markers are ordered and reviewed by the Pathologist. INTERPRETATION: Distal esophagus, biopsy: Negative for dysplasia. KAREN:marques 06/25/2023
--- NOTE | 2023-06-23 09:45 | EGD_PTH ---
PATHOLOGY RESULTS PATIENT: ML GOODWIN LOC: EN U#:[id number] AGE/SX: 28/F ROOM: RE06/23/[address]: Dr. Kolton Hartman DO : 1995 BED: DIS: 06/23/2023 SPEC #: [id number] RECD: 06/23/23 13:41 STATUS: BRIGHT SONALI #: [id number] KLEVER: 06/23/23 09:[address]: Kolton Hartman DEPT: SURGICAL PATHOLOGY RECD BY: Zaida Perrin ENTERED: 06/23/23 13:41 SP TYPE: EGD BIOPSY Tissues: Esophagus, NOS Procedures: Surgery Specimen Level IV HEADER OPERATION: EGD, biopsy PRE-OP DIAGNOSIS: GERD, De Los Santos's esophagus, Irritable bowel syndrome TISSUE SUBMITTED: Distal esophagus biopsy MICROSCOPIC DIAGNOSIS Distal esophagus, biopsy: Fragments of gastroesophageal mucosa with focal intestinal metaplasia (goblet cell metaplasia), consistent with De Los Santos's esophagus. Chronic inflammation. Negative for dysplasia. See comment. KAREN:marques 06/24/2023 COMMENT Alcian blue/PAS stain with matched control is used in the evaluation of the specimen. Immunohistochemistry ([id number]) for P53 and Ki-67 will be performed and results will be reported separately. MICROSCOPIC DESCRIPTION Slides are reviewed. GROSS DESCRIPTION Received in fixative is one container labeled with the patient's name and designated distal esophagus. The specimen consists of multiple irregular fragments of light mims soft tissue that in aggregate measure 1.2 x 0.5 x 0.1 cm. The specimen is totally submitted in one cassette. / KAREN:marques 06/23/2023 TC:3 CPT: 44864, 43356
--- NOTE | 2023-06-23 09:59 | PCM.HP.BLA ---
History and Physical Date of Admission: 06/23/23 ML GOODWIN, is a 27 F who presents to the office today for 3 month f/u GERD, De Los Santos's esophagus, IBS-D. She had a flare of reflux in 05/2022 when she had acute viral gastroenteritis. Since then acid reflux has been under control; she was able to decrease omeprazole 40 mg bid to QAM after 2 months of BID dosing following De Los Santos's diagnosis. She has a lax LES, lack of pyloric sphincter. Her gastric emptying study was normal at 43 minutes. Has intermittent flareups of IBS, eg on [place], gets abd pain and diarrhea. Takes dicyclomine prn especially when she travels which she does frequently for work. Otherwise she can prevent IBS by managing her diet. 04/2022 EGD revealed Z-line irregular, erythematous mucosa in the cardia, normal duodenum, lax lower esophageal sphincter, lack of pyloric sphincter.? Biopsies revealed mild gastritis, negative H. pylori, positive De Los Santos's but negative for dysplasia of the esophagus.? Colonoscopy revealed normal colon, biopsies suspicious for melanosis coli. ? 12/2021 labs: CRP 6, [facility] panel not suggestive of inflammatory bowel disease. ED visit in 09/2021 for abd cramping with bloody diarrhea--c diff neg, WBC slightly elevated 11.2, CMP unremarkable; CT possible mild or developing descending colitis; treated with flagyl and bentyl. Mother had partial colectomy due to complications from constipation. Father probably has IBS. No FH IBD or other autoimmune disorders. ROS Const Constitutional: No fatigue ENT ENT: No difficulty swallowing Gastro GI: Positive for abdominal pain, bloating, diarrhea, heartburn and excessive flatus; No belching, change in bowel habits, change in stool character, coffee ground emesis, constipation, cramping, difficulty swallowing, feeling full early, incontinent of stools, Vomiting blood/hematemesis, Blood in stool, loose stools, Black,tarry stools, nausea/dyspepsia, pain with swallowing, vomiting or other Musc Musculoskeletal: No joint pain Skin Skin: No yellowing of the eye or itchy eyes Psych Psychiatric: Positive for anxiety and No depression Endo Endocrine: No fatigue Aller/Imm Allergy/Immunologic: No itchy eyes [place]/Lymp Hematologic/Lymphatic: No easy bleeding or easy bruising Exam Const General: cooperative, healthy appearing and comfortable Orientation: alert, awake and oriented x3 Quality Reporting Tobacco Screening ([facility] 138) Smoking Status: Never smoker Assessment and Plan Assessment and Plan (1) GERD (gastroesophageal reflux disease): Status: Chronic Plan: Continue omeprazole 40 mg QAM Will repeat EGD 03/2023 to reeval De Los Santos's (2) De Los Santos's esophagus: Status: Chronic Plan: as above (3) IBS (irritable bowel syndrome): Status: Chronic Plan: Continue to manage with diet and prn dicyclomine Medications: Discontinued cholestyramine (with sugar) 4 gram administer w/meal; avoid other meds within 1hr before or 4-6hr after dose Discontinued Reason: Order Changed 4 grams PO DAILY 60 ea 2RF I have examined the patient and the H&P has been reviewed. There are no clinical changes since date of exam.
--- NOTE | 2023-06-23 10:54 | OP.EGD_ITS ---
Patient Name: Lydia Means Procedure Date: 06/23/2023 10:39 AM Date of : 1995 Age: 28 Procedure: Upper GI endoscopy Indications: Heartburn, De Los Santos's esophagus Providers: Kolton Hartman DO Referring MD: Kolton Hartman DO Medicines: Monitored Anesthesia Care Patient Profile: This is a 28 year old female. Refer to note in patient chart for documentation of history and physical. Patient has symptoms of chronic heartburn. Complications: No immediate complications. Procedure: Pre-Anesthesia Assessment: - Prior to the procedure, a History and Physical was performed, and patient medications and allergies were reviewed. The risks and benefits of the procedure and the sedation options and risks were discussed with the patient. All questions were answered and informed consent was obtained. Patient identification and proposed procedure were verified by the physician in the pre-procedure area. Mental Status Examination: normal. Prophylactic Antibiotics: The patient does not require prophylactic antibiotics. Prior Anticoagulants: The patient has taken no anticoagulant or antiplatelet agents. ASA Grade Assessment: II - A patient with mild systemic disease. After reviewing the risks and benefits, the patient was deemed in satisfactory condition to undergo the procedure. The anesthesia plan was to use monitored anesthesia care (MAC). Immediately prior to administration of medications, the patient was re-assessed for adequacy to receive sedatives. The heart rate, respiratory rate, oxygen saturations, blood pressure, adequacy of pulmonary ventilation, and response to care were monitored throughout the procedure. The physical status of the patient was re-assessed after the procedure. After obtaining informed consent, the endoscope was passed under direct vision. Throughout the procedure, the patient's blood pressure, pulse, and oxygen saturations were monitored continuously. The gastroscope was introduced through the mouth, and advanced to the second part of duodenum. The upper GI endoscopy was accomplished without difficulty. The patient tolerated the procedure well. Scope In: 10:47:34 AM Scope Out: 10:50:48 AM Total Procedure Duration Time 0 hours 3 minutes 14 seconds Findings: There were esophageal mucosal changes secondary to established short-segment De Los Santos's disease present in the lower third of the esophagus. The maximum longitudinal extent of these mucosal changes was 2 cm in length. Mucosa was biopsied with a cold forceps for histology in a targeted manner at intervals of 1 cm in the lower third of the esophagus. One specimen bottle was sent to pathology. Verification of patient identification for the specimen was done. Estimated blood loss was minimal. The entire examined stomach was normal. The second portion of the duodenum was normal. Impression: - Esophageal mucosal changes secondary to established short-segment De Los Santos's disease. Biopsied. - Normal stomach. - Normal second portion of the duodenum. Recommendation: - Discharge patient to home. - Resume previous diet. - Continue present medications. - Await pathology results. - Repeat upper endoscopy in 1 year for surveillance. - Return to GI office. Procedure Code(s): --- Professional --- 03238, Esophagogastroduodenoscopy, flexible, transoral; with biopsy, single or multiple CPT copyright 2021 [employer]. All rights reserved. The codes documented in this report are preliminary and upon science center display builder review may be revised to meet current compliance requirements. Kolton Hartman DO 06/23/2023 10:53:27 AM This report has been signed electronically. Number of Addenda: 0 Note Initiated On: 06/23/2023 10:39 AM
--- NOTE | 2023-06-23 10:54 | OP.CCLET_ITS ---
06/23/2023 Cynthia Re : Upper GI endoscopy procedure for Lydia Means Dear Cynthia This procedure was performed on Friday, June 23, 2023. My impressions and recommendations are as follows: Impressions : - Esophageal mucosal changes secondary to established short-segment De Los Santos's disease. Biopsied. - Normal stomach. - Normal second portion of the duodenum. Recommendations : - Discharge patient to home. - Resume previous diet. - Continue present medications. - Await pathology results. - Repeat upper endoscopy in 1 year for surveillance. - Return to GI office. My findings are described in the full procedure note, which is enclosed. If I can be of further assistance, please feel free to contact me at . Sincerely, Kolton Hartman, 06/23/2023 10:53:27 AM This report has been signed electronically.
[2023-06-23 10:57] VITALS: BP 101/63; BP 97/65; PULSE 78; RESP 16; TEMP 36.4; O2SAT 97
[2023-06-23 11:00] VITALS: BP 101/63; BP 95/59; PULSE 78; RESP 16; O2SAT 98
[2023-06-23 11:05] VITALS: BP 101/63; BP 95/60; PULSE 69; RESP 16; O2SAT 100
[2023-06-23 11:10] VITALS: BP 101/63; BP 96/67; PULSE 72; RESP 16; TEMP 36.4; O2SAT 100
[2023-06-23 11:29] VITALS: BP 101/63
== END 2023-06-23 11:35 | disposition home or self-care (01) ==
LOC: EN 08:52 → AC 08:56
PROVIDERS: Anesthesiology; Visit Provider Internal Medicine Gastroenterology
PROC: 0DJ08ZZ Inspection of Upper Intestinal Tract, Via Natural or Artificial Opening Endoscopic (ICD-10-PCS; CPT 43235; principal; 2023-06-23 09:40)
DX: K22.70 Barrett's esophagus without dysplasia (principal); K21.00 Gastro-esophageal reflux disease with esophagitis, without bleeding; K58.9 Irritable bowel syndrome, unspecified; Z79.899 Other long term (current) drug therapy
CPT/HCPCS: 43239; 81025; 88305; 88341; 88342; J7120; J2405

== ENCOUNTER 2024-07-05 08:03 | Day surgery (SDC) | payer BC, SELFPAY ==
[2024-07-05] VITALS (7 sets, daily range): BP systolic 105–118; BP diastolic 65–80; PULSE 72–90; RESP 16–20; TEMP 36.4–36.8; O2SAT 96–100; BMI 31.5
[2024-07-05 08:46] LABS: Internal QC Validated? YES +Cl - CLEAR BKGD; Pregnancy, Urine Negative Negative
--- NOTE | 2024-07-05 08:52 | PCM.PRE.AN2 ---
ASA Classification* ASA Classification ASA Classification: 2 Assessment & Plan Anesthesia* Anesthesia Assessment Anesthesia Assessment: Discussed sedation and/or anesthesia options, risks, benefits, and alternatives with patient/parents/legal guardian/POA. Questions invited. The patient/parents/legal guardian/POA seems to understand and agrees to proceed with anesthesia plan. Reviewed the physical assessment, medical history, allergy history and patient home medications list prior to surgery/procedure/anesthetic and documented any changes. Performed airway and anesthesia risk assessments. Anesthesia Type Anesthesia Type: MAC History Source History Obtained from:: Patient and Chart Anesthesia Focused Assessment* Temperature: 98.2 F Pulse Rate: 72 Blood Pressure: 105/65 Respiratory Rate: 17 Pulse Ox: 100 Oxygen Delivery Method: Room Air Airway Assessment Mouth opens: >3 cm Mallampati Score: II Neck Range of motion (ROM): Full ROM Focused Labs Anesthesia Preop lab: CBC WBC 7.4 K/mm3 (4.4-11.0) 11/18/22 08:30 11/18/22 RBC 4.74 M/mm3 (4.2-5.4) 11/18/22 08:30 11/18/22 Hgb 14.1 g/dL (12.0-15.0) 11/18/22 08:30 11/18/22 Hct 42.0 % (37-47) 11/18/22 08:30 11/18/22 Plt Count 357 K/mm3 (150-450) 11/18/22 08:30 11/18/22 CHEMISTRY Potassium 4.1 mmol/L (3.5-5.1) 11/18/22 08:30 11/18/22 Sodium 134 mmol/L (136-145) L 11/18/22 08:30 11/18/22 BUN 15 mg/dL (7-18) 11/18/22 08:30 11/18/22 Creatinine 0.91 mg/dL (0.55-1.02) 11/18/22 08:30 11/18/22 Glucose 101 mg/dL (74-106) 11/18/22 08:30 11/18/22 TSH 2.87 uIU/mL (0.358-3.74) 11/18/22 08:30 11/18/22 COAG Urine Test Negative Negative 07/05/24 08:15 07/05/24 Pre-Assessment Diagnosis/Proposed Procedure Planned Operative Procedure(s): EGD Anesthesia History Anesthesia History - driller brake lining: Anesthesia History - driller brake lining Hx Hospitalization No 07/03/24 17:10 Any Problems With Anesthesia patient dizzy post anesthesia. 07/03/24 17:10 Cholinesterase deficiency No 07/03/24 17:10 You/Your Family Experience No 07/03/24 17:10 fever (hyperthermia) with Relationship Recent Exposure to Contagious No 07/05/24 08:26 Disease Does patient have nerve No 07/03/24 17:10 stimulator Patient instructed to have device shut off --Does patient have Pacemaker No 07/05/24 08:26 or ICD? When Was Last Pacemaker Check QUESTION #4 FULL TEXT: You/Your Family Experience fever (hyperthermia) with Anesthesia Last Oral Intake Last Oral intake: Last Oral Intake NPO since 00:00 07/05/24 08:26 Meds taken in AM with sips of No 07/05/24 08:26 water? Meds patient instructed to take am of surgery PONV PONV - driller brake lining: PONV - driller brake lining Female Yes 07/03/24 17:10 HX of Motion Sickness Yes 07/03/24 17:10 HX of N/V After Surgery No 07/03/24 17:10 Non-Smoker Yes 07/03/24 17:10 Duration of Surgery greater No 07/03/24 17:10 than 60 minutes Number of Risk Factors 3 07/03/24 17:10 PONV Score Moderate Risk 07/03/24 17:10 Height & Weight Height & Weight: Anesthesia: Height & Weight Height 5 ft 8 in 07/05/24 08:26 Weight: 94 kg 07/05/24 08:26 Body Mass Index (BMI) 31.5 07/05/24 08:26 Respiratory Assessment Respiratory Assessment - driller brake lining: Respiratory Tract Infection Hx - driller brake lining Hx Respiratory Tract Infection No 07/03/24 17:10 STOP Sleep Apnea STOP Sleep Apnea - driller brake lining: STOP Sleep Apnea - driller brake lining Hx Hypertension No 07/03/24 17:10 Hx Sleep Apnea No 07/03/24 17:10 CPAP BIPAP Do you snore loudly (louder No 07/03/24 17:10 than talking or can be heard Do you often feel tired/ No 07/03/24 17:10 fatigued/ sleepy during daytime? Has anyone observed you stop No 07/03/24 17:10 breathing during sleep? STOP Results Negative 07/03/24 17:10 QUESTION #5 FULL TEXT : Do you snore loudly (louder than talking or can be heard through closed doors)? Tobacco Use History Tobacco Use History - driller brake lining: Tobacco Use History - driller brake lining Tobacco Use Smoking Status Never smoker 07/03/24 17:10 Hx Tobacco Use No 07/03/24 17:10 Years Smoking Packs Smoked per Day Smoking Cessation Date was within the last 15 years Hx Smoking Cessation Date Hx Smoking Cessation Counseling Hematologic Medial History Hematologic Hx - driller brake lining: Hematologic Medical Hx - map plotter Hx of Blood Transfusion No 07/03/24 17:10 Hx of Transfusion in last 3 No 07/03/24 17:10 Months Date of Last Transfusion (if within last 3 months) Ever experience any problems No 07/03/24 17:10 with transfusion(s)? Specify any problems Hx of Preganancy in last 3 No 07/03/24 17:10 Months Nurse Filling Out Transfusion MGRIFFITH 07/03/24 17:10 & Questions: Date: 07/03/24 07/03/24 17:10 Time: 17:12 07/03/24 17:10 Patient unable to answer at this time (ie. confused, unrespo /Reproduction History /Reproductive History - driller brake lining: /Reproductive Hx- driller brake lining Hx Now No 07/03/24 17:10 Gestational Age (in weeks): EDC: Hx Hx Para Hx Section SAB No 07/03/24 17:10 PFS Medical History History of GI bleed Alcohol use Dietary restriction Gastric reflux Non-smoker Rectal bleed Anal fissure Hemorrhoids GERD (gastroesophageal reflux disease) Acne IBS (irritable bowel syndrome) Home Medications ?Medication ?Instructions ?Recorded ?Last Taken ?Type fluticasone propionate 50 1 spray intranasal DAILY PRN nasal 04/22/22 Unknown History mcg/actuation nasal congestion spray,suspension (Flonase Allergy Relief) spironolactone 50 mg tablet 50 mg PO QHS 09/14/23 Unknown History dicyclomine 20 mg tablet 20 mg PO BID PRN abdominal pain 06/21/23 Unknown History Diltiazem 2% / Lidocaine 5% #1 ea 04/21/24 Unknown Rx ointment (compound) (Diltiazem 2%/Lidocaine 5% ointment (compound)) omeprazole 40 mg capsule,delayed 40 mg PO QDAY 04/21/24 Unknown History release cetirizine 10 mg tablet (24Hour 10 mg PO DAILY 07/03/24 Unknown History Allergy) desogestrel 0.15 mg-ethinyl 1 tab PO QHS 07/03/24 Unknown History estradiol 0.03 mg tablet (Apri) Allergy/AdvReac Type Severity Reaction Status Date / Time azithromycin (From Zithromax Allergy Unknown Unknown Verified 07/03/24 17:06 Z-Blaise) sulfamethoxazole (From Allergy Unknown Unknown Verified 07/03/24 17:06 Bactrim) trimethoprim (From Bactrim) Allergy Unknown Unknown Verified 07/03/24 17:06 Family History Father Hypertension Mother Hypertension Gastric ulcer Hypercholesteremia Surgical History History of esophagogastroduodenoscopy (EGD) History of colonoscopy History of wisdom tooth extraction Social History number of children: 0 Smoking Status: Never smoker alcohol intake: current alcohol intake frequency: a few times a month substance use type: does not use caffeine: Yes what type of physical activity do you participate in: running and bicycling frequency: 3-4 times per week seatbelt use: always do you feel safe at home: Yes additional social history: Single Works at [employer] Review of Systems (Anesthesia) ROS Narrative System reviewed and no additional complaints, except as documented.
--- NOTE | 2024-07-05 09:14 | PCM.HP.STD ---
HPI - General General Date of Admission: 07/05/24 Date of Service: 07/05/24 Chief Complaint: al's esophagus HPI Narrative ML STROUD, is a 29 F who presentsChief Complaint: IBS, Barrets, anal fissure Details: ML STROUD, is a 29 F who presents to the office today for f/u. BGI established 9 w/ complaints of IBS type symptoms with abd pain and diarrhea. EGD 04.23.22; - Z-line irregular, 39 cm from the incisors. Biopsied. - Erythematous mucosa in the cardia. Biopsied. - Normal duodenal bulb, first portion of the duodenum and second portion of the duodenum. Biopsied. Colonoscopy 04.23.22: - The entire examined colon is normal. Biopsied. - The examined portion of the ileum was normal. Biopsied. EGD 06.23.23; Esophageal mucosal changes secondary to established short-segment Al's disease. Biopsied. - Normal stomach. - Normal second portion of the duodenum. OV 4.16.24 OV 1.3.25 Pt has been doing well with her IBS. She is no longer having diarrhea. She takes Imodium as needed and dicyclomine. Her GERD is controlled with PPI but will have to take tums on occasion. She has complaints of rectal pain that she believes is related to an anal fissure. She has had these in the past and has been on prescription ointment. [facility] Medical History History of GI bleed Alcohol use Dietary restriction Gastric reflux Non-smoker Rectal bleed Anal fissure Hemorrhoids GERD (gastroesophageal reflux disease) Acne IBS (irritable bowel syndrome) Home Medications ?Medication ?Instructions ?Recorded ?Last Taken ?Type fluticasone propionate 50 1 spray intranasal DAILY PRN nasal 04/22/22 Unknown History mcg/actuation nasal congestion spray,suspension (Flonase Allergy Relief) spironolactone 50 mg tablet 50 mg PO QHS 12/31/22 Unknown History dicyclomine 20 mg tablet 20 mg PO BID PRN abdominal pain 06/21/23 Unknown History Diltiazem 2% / Lidocaine 5% #1 ea 04/21/24 Unknown Rx ointment (compound) (Diltiazem 2%/Lidocaine 5% ointment (compound)) omeprazole 40 mg capsule,delayed 40 mg PO QDAY 04/21/24 Unknown History release cetirizine 10 mg tablet (24Hour 10 mg PO DAILY 07/03/24 Unknown History Allergy) desogestrel 0.15 mg-ethinyl 1 tab PO QHS 07/03/24 Unknown History estradiol 0.03 mg tablet (Apri) Allergy/AdvReac Type Severity Reaction Status Date / Time azithromycin (From Zithromax Allergy Unknown Unknown Verified 07/03/24 17:06 Z-Blaise) sulfamethoxazole (From Allergy Unknown Unknown Verified 07/03/24 17:06 Bactrim) trimethoprim (From Bactrim) Allergy Unknown Unknown Verified 07/03/24 17:06 Family History Father Hypertension Mother Hypertension Gastric ulcer Hypercholesteremia Surgical History History of esophagogastroduodenoscopy (EGD) History of colonoscopy History of wisdom tooth extraction Social History number of children: 0 Smoking Status: Never smoker alcohol intake: current alcohol intake frequency: a few times a month substance use type: does not use caffeine: Yes what type of physical activity do you participate in: running and bicycling frequency: 3-4 times per week seatbelt use: always do you feel safe at home: Yes additional social history: Single Works at [employer] Constitutional Constitutional: Denies fatigue, fever(s), poor appetite, weight gain or weight loss Gastrointestinal Gastrointestinal: Denies belching, bloating, change in bowel habits, change in stool character, chewing difficulty, coffee ground emesis, constipation, cramping, diarrhea, dyspepsia, dysphagia, early satiety, excessive flatus, fecal incontinence, heartburn, hematemesis, hematochezia, hemorrhoids, loose stools, melena, nausea, odynophagia, rectal bleeding, tenesmus, vomiting or weight changes Vital Signs Vital Signs Vital Signs: 07/05/24 08:26 07/05/24 08:26 07/05/24 08:59 Temperature 98.2 F 98.2 F Temperature Source Temporal Pulse Rate 72 72 Respiratory Rate 17 17 Respiratory Pattern Normal Blood Pressure 105/65 105/65 Blood Pressure Mean 78 Blood Pressure Source Monitor Blood Pressure Position Semi-Fowlers Blood Pressure Location Left Arm Pulse Ox 100 100 Oxygen Delivery Method Room Air Room Air Weight Weight: 207 lb 3.752 oz Body Mass Index (BMI) 31.5 Physical Exam Const alert, oriented x3, no apparent distress and healthy appearing General Appearance: cooperative GI normal to inspection, nondistended, normoactive bowel sounds, soft to palpation, non-tender and non-distended Percussion: normal to percussion Rectal Exam: deferred Results Lab / Micro Data Labs: Laboratory Results - last 24 hr 07/05/24 08:15: Urine Test Negative Assessment & Plan Assessment/Plan (1) Al's esophagus: PLAN: Assessment and Plan Assessment and Plan (1) Al's esophagus: Status: Chronic Plan: This is a 29 yo female pt here today for f/u. 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 Pt IBS is under control with Imodium and dicyclomine. Heartburn is controlled with PPI. She will be scheduled for upper endoscopy She has concerns for an anal fissure. She is having anal pain and a small amount of bleeding with wiping. She has had an anal fissure in the past that was treated with diltiazem and lidocaine ointment. -Repeat EGD -Continue PPI -Start diltiazem and lidocaine ointment -f/u after scope (2) IBS (irritable bowel syndrome): Status: Chronic (3) Anal fissure: Status: Acute Medications: New Diltiazem 2% / Lidocaine 5% ointment (compound) (Diltiazem 2%/Lidocaine 5% ointment (compound)) apply to anus twice a day as needed for anal fissures 1 ea 0RF
--- NOTE | 2024-07-05 09:15 | EGD_PTH ---
PATIENT: ML STROUD LOC: EN U#:[id number] AGE/SX: 29/F ROOM: RE07/05/[address]: Dr. Kolton Hartman DO : 1995 BED: DIS: 07/05/2024 SPEC #: [id number] RECD: 07/05/24 13:12 STATUS: BRIGHT GEORGEHong #: [id number] KLEVER: 07/05/24 09:[address]: Kolton Hartman DEPT: SURGICAL PATHOLOGY RECD BY: Tomás Lilly Tissues: A - Esophagus, NOS Procedures: Special Stain Group I Surgery Specimen Level IV Alcian Blue/PAS (control) HEADER OPERATION: EGD with biopsy PRE-OP DIAGNOSIS: De Los Santos's esophagus TISSUE SUBMITTED: A- Distal esophagus biopsy MICROSCOPIC DIAGNOSIS Distal esophagus, biopsy:Squamous and foveolar mucosa with focal chronic inflammation and intestinal metaplasia. (See comment)Camron Rg MD, 07/13/24 COMMENT An Alcian blue/PAS stain with appropriate controls is positive in goblet cells. MICROSCOPIC DESCRIPTION Slides are reviewed. GROSS DESCRIPTION A. Received in fixative is one container labeled with the patient's name and designated Distal esophagus biopsy. The specimen consists of multiple irregular fragments of light mims soft tissue that in aggregate measure 1.8 x 0.3 x 0.2 cm. The specimen is totally submitted in one cassette. 07/05/2024 CPT:33757,90503 TC:3
--- NOTE | 2024-07-05 09:16 | PCM.POST.ANE ---
Anesthesia: Postop Eval I Current Vital Signs Temperature: 97.5 F Pulse Rate: 90 Blood Pressure: 112/79 Respiratory Rate: 20 Pulse Ox: 96 Oxygen Delivery Method: Room Air Assessment Airway patent: Yes Spontaneous unlabored respirations: Yes Mental status: Awake and Calm nausea: No Vomiting: No Anesthesia Complication: No Fluid Hydration Crystalloid volume administer (ml): 30 Total IV fluid infused: 30 Progress Note Anesthesia document: Postop Eval 1 completed: Yes
--- NOTE | 2024-07-05 09:37 | OP.EGD_ITS ---
Patient Name: Lydia Winn Procedure Date: 07/05/2024 9:16 AM Date of : 1995 Age: 29 Procedure: Upper GI endoscopy Indications: Follow-up of De Los Santos's esophagus Providers: Kolton Hartman DO Referring MD: Lady Marie Medicines: Monitored Anesthesia Care Patient Profile: This is a 29 year old female. Refer to note in patient chart for documentation of history and physical. Patient has symptoms of chronic heartburn. Complications: No immediate complications. Procedure: Pre-Anesthesia Assessment: - Prior to the procedure, a History and Physical was performed, and patient medications and allergies were reviewed. The risks and benefits of the procedure and the sedation options and risks were discussed with the patient. All questions were answered and informed consent was obtained. Patient identification and proposed procedure were verified by the physician in the pre-procedure area. Mental Status Examination: alert and oriented. Airway Examination: normal oropharyngeal airway and neck mobility. Respiratory Examination: clear to auscultation. CV Examination: normal. ASA Grade Assessment: II - A patient with mild systemic disease. After reviewing the risks and benefits, the patient was deemed in satisfactory condition to undergo the procedure. The anesthesia plan was to use monitored anesthesia care (MAC). Immediately prior to administration of medications, the patient was re-assessed for adequacy to receive sedatives. The heart rate, respiratory rate, oxygen saturations, blood pressure, adequacy of pulmonary ventilation, and response to care were monitored throughout the procedure. The physical status of the patient was re-assessed after the procedure. After obtaining informed consent, the endoscope was passed under direct vision. Throughout the procedure, the patient's blood pressure, pulse, and oxygen saturations were monitored continuously. The Endoscope was introduced through the mouth, and advanced to the second part of duodenum. The upper GI endoscopy was accomplished without difficulty. The patient tolerated the procedure well. Scope In: 9:23:34 AM Scope Out: 9:29:01 AM Total Procedure Duration Time 0 hours 5 minutes 27 seconds Findings: There were esophageal mucosal changes secondary to established short-segment De Los Santos's disease present in the lower third of the esophagus. The maximum longitudinal extent of these mucosal changes was 2 cm in length. Mucosa was biopsied with a cold forceps for histology in a targeted manner at intervals of 1 cm in the lower third of the esophagus. One specimen bottle was sent to pathology. Verification of patient identification for the specimen was done. Estimated blood loss was minimal. A small hiatal hernia was present. No other significant abnormalities were identified in a careful examination of the stomach. No gross lesions were noted in the second portion of the duodenum. Impression: - Esophageal mucosal changes secondary to established short-segment De Los Santos's disease. Biopsied. - Small hiatal hernia. - No gross lesions in the second portion of the duodenum. Recommendation: - Discharge patient to home. - Resume previous diet. - Continue present medications. - Await pathology results. Procedure Code(s): --- Professional --- 41044, Esophagogastroduodenoscopy, flexible, transoral; with biopsy, single or multiple CPT copyright 2021 [employer]. All rights reserved. The codes documented in this report are preliminary and upon professional fee coder review may be revised to meet current compliance requirements. Kolton Hartman DO 07/05/2024 9:36:38 AM This report has been signed electronically. Number of Addenda: 0 Note Initiated On: 07/05/2024 9:16 AM
--- NOTE | 2024-07-05 09:37 | OP.CCLET_ITS ---
07/05/2024 Lady Marie Re : Upper GI endoscopy procedure for Lydia Winn Dear Cynthia This procedure was performed on Friday, July 05, 2024. My impressions and recommendations are as follows: Impressions : - Esophageal mucosal changes secondary to established short-segment De Los Santos's disease. Biopsied. - Small hiatal hernia. - No gross lesions in the second portion of the duodenum. Recommendations : - Discharge patient to home. - Resume previous diet. - Continue present medications. - Await pathology results. My findings are described in the full procedure note, which is enclosed. If I can be of further assistance, please feel free to contact me at . Sincerely, Kolton Hartman, 07/05/2024 9:36:38 AM This report has been signed electronically.
--- NOTE | 2024-07-05 14:03 | POSTOPAN2_ITS ---
Anesthesia Postop Eval I Sum Postop Eval Completion status Anesthesia document: Postop Eval 1 completed: Yes Anesthesia Postop Eval I Summary Anesthesia Postop Eval I Summary: Anesthesia Postop Eval I: Assessment Summary Airway patent Yes 07/05/24 09:37 DIRECTOR INDUSTRIAL RELATIONS.[email or web address] Spontaneous unlabored Yes 07/05/24 09:37 DIRECTOR INDUSTRIAL RELATIONS.[email or web address] respirations Mental status Awake,Calm 07/05/24 09:37 DIRECTOR INDUSTRIAL RELATIONS.[email or web address] nausea No 07/05/24 09:37 DIRECTOR INDUSTRIAL RELATIONS.[email or web address] Vomiting No 07/05/24 09:37 DIRECTOR INDUSTRIAL RELATIONS.[email or web address] Anesthesia Postop Eval I: Fluid Summary Crystalloid volume administer 30 07/05/24 09:37 DIRECTOR INDUSTRIAL RELATIONS.PKEL (ml) Colloids volume administered ( ml) Blood Product volume administered (ml) Total IV fluid infused 30 07/05/24 09:37 DIRECTOR INDUSTRIAL RELATIONS.PKEL Anesthesia Postop Eval I: Summary Notes Anesthesia Complication No 07/05/24 09:37 DIRECTOR INDUSTRIAL RELATIONS.[email or web address] Anesthesia Complication Comment: Post-operative progress note Anesthesia: Postop Eval II Evaluation Mental status: Awake Pain Level: 1 nausea: No Vomiting: No
--- NOTE | 2024-07-05 14:03 | PCM.POSTANE2 ---
Anesthesia Postop Eval I Sum Postop Eval Completion status Anesthesia document: Postop Eval 1 completed: Yes Anesthesia Postop Eval I Summary Anesthesia Postop Eval I Summary: Anesthesia Postop Eval I: Assessment Summary Airway patent Yes 07/05/24 09:37 CUSTOMER SUPPORT COORDINATOR.[email or web address] Spontaneous unlabored Yes 07/05/24 09:37 CUSTOMER SUPPORT COORDINATOR.[email or web address] respirations Mental status Awake,Calm 07/05/24 09:37 CUSTOMER SUPPORT COORDINATOR.[email or web address] nausea No 07/05/24 09:37 CUSTOMER SUPPORT COORDINATOR.[email or web address] Vomiting No 07/05/24 09:37 CUSTOMER SUPPORT COORDINATOR.[email or web address] Anesthesia Postop Eval I: Fluid Summary Crystalloid volume administer 30 07/05/24 09:37 CUSTOMER SUPPORT COORDINATOR.[email or web address] (ml) Colloids volume administered ( ml) Blood Product volume administered (ml) Total IV fluid infused 30 07/05/24 09:37 CUSTOMER SUPPORT COORDINATOR.[email or web address] Anesthesia Postop Eval I: Summary Notes Anesthesia Complication No 07/05/24 09:37 CUSTOMER SUPPORT COORDINATOR.[email or web address] Anesthesia Complication Comment: Post-operative progress note Anesthesia: Postop Eval II Evaluation Mental status: Awake Pain Level: 1 nausea: No Vomiting: No
== END 2024-07-05 10:09 | disposition home or self-care (01) ==
LOC: EN 08:05 → AC 08:07
PROVIDERS: Anesthesiology; Visit Provider Internal Medicine Gastroenterology
PROC: 0DJ08ZZ Inspection of Upper Intestinal Tract, Via Natural or Artificial Opening Endoscopic (ICD-10-PCS; CPT 43235; principal; 2024-07-05 09:10)
DX: K22.70 Barrett's esophagus without dysplasia (principal); K58.9 Irritable bowel syndrome, unspecified; K44.9 Diaphragmatic hernia without obstruction or gangrene; K60.2 Anal fissure, unspecified; K21.9 Gastro-esophageal reflux disease without esophagitis
CPT/HCPCS: 43239; 81025; 88305; A4216; J2405